=== PATIENT | male | born 1965 | race Hispanic/Latino ===

== ENCOUNTER 2020-06-14 08:25 | Outpatient (CLI) | payer BC, SELFPAY ==
[2020-06-14 09:11] LABS: Alanine Aminotransferase 30 U/L (4-50); Alkaline Phosphatase 75 U/L (38-126); Anion Gap 9 mmol/L (8-16); Aspartate Amino Transferase 33 U/L (17-59); Blood Urea Nitrogen 24 mg/dL (9-20); Calcium 8.7 mg/dL (8.4-10.2); Carbon Dioxide 23 mmol/L (22-30); Chloride 105 mmol/L (98-107); Cholesterol 115 mg/dL (0-200); Estimated Glomerular Filt Rate 45; Glucose 222 mg/dL (75-110); HDL Direct 27 mg/dL; Sodium 137 mmol/L (137-145); Triglycerides 349 mg/dL (<150)
[2020-06-14 09:13] LABS: Hemoglobin A1C 7.7 % (<5.7)
[2020-06-14 09:22] LABS: LDL Cholesterol Direct 33 mg/dL
[2020-06-14 09:41] LABS: Prostate Specific Antigen 1.1 ng/mL (< OR = 4.0)
== END 2020-06-14 08:26 | disposition home or self-care (01) ==
PROVIDERS: PCP Internal Medicine; Visit Provider Nurse Practitioner
DX: E78.5 Hyperlipidemia, unspecified (principal); E11.29 Type 2 diabetes mellitus with other diabetic kidney complication; Z12.5 Encounter for screening for malignant neoplasm of prostate
CPT/HCPCS: 36415; 80053; 80061; 83036; 84153; G0103

== ENCOUNTER 2020-10-15 09:11 | Emergency (ER) | payer BC, SELFPAY ==
--- NOTE | ~2020-10-15 | XR_ITS ---
EXAMINATION: XR scapula RT DATE: 10/15/2020 09:39 INDICATION: Right shoulder pain. TECHNIQUE: 2 views of right scapula were obtained. COMPARISON: None. FINDINGS: Bone alignment is normal. No fracture. There is moderate osteoarthritis of glenohumeral unique nt and acromioclavicular joint. IMPRESSION: 1. Polyarticular osteoarthritis. Reviewed, dictated and finalized at location A.
--- NOTE | ~2020-10-15 | XR_ITS ---
EXAMINATION: XR shoulder RT min 2V DATE: 10/15/2020 09:39 INDICATION: Right shoulder pain. TECHNIQUE: 4 views of right shoulder were obtained. COMPARISON: None. FINDINGS: Bone alignment is normal. No fracture. There is moderate osteoarthritis of glenohumeral unique nt and acromioclavicular joint. Partially visualized are pacer wires. IMPRESSION: 1. Polyarticular osteoarthritis. Reviewed, dictated and finalized at location A.
[2020-10-15 09:21] VITALS: BP 145/89; PULSE 80; RESP 17; TEMP 35.8; O2SAT 97
--- NOTE | 2020-10-15 09:36 | ED.GENADULT ---
HPI - General Adult General Chief complaint: Extremity Injury, Upper <Mellisa Faustin PA-C - Last Filed: 10/15/20 09:55> Stated complaint: right shoulder blade pain <Mellisa Faustin PA-C - Last Filed: 10/15/20 09:55> Time Seen by Provider: 10/15/20 09:19 <Mellisa Faustin PA-C - Last Filed: 10/15/20 09:55> Source: patient <DAMON Hunt Last Filed: 10/15/20 09:55> Mode of arrival: ambulatory <Mellisa Faustin PA-C - Last Filed: 10/15/20 09:55> Limitations: no limitations <DAMON Hunt Last Filed: 10/15/20 09:55> History of Present Illness HPI narrative: Patient presents with chief complaint of right scapular and shoulder pain that began approximately 2 weeks ago. Patient states he cannot recall a direct injury however he carries a 30+ pound weight back on the shoulder daily. He reports pain with range of motion. Patient states last night he had trouble sleeping and normally takes 1 [place] for his knee pain but had to take 2 in order to be able to sleep due to the pain from the shoulder. Patient denies any loss of sensation or strength, but does report pain with some range of motion. Patient denies having prior injury or fracture to the shoulder. Patient has not seen his primary care regarding the shoulder. He denies any other complaints or concerns. <Mellisa Faustin PA-C - Last Filed: 10/15/20 09:55> Related Data Home medications: Home Medications Medication Instructions Recorded Confirmed aspirin 81 mg tablet,delayed 81 mg PO DAILY 05/29/19 06/24/20 release sildenafil 50 mg tablet 50 mg PO DAILY PRN 05/29/19 06/24/20 triamcinolone acetonide 0.1 % 1 applic TOPICAL .BID PRN gm 06/13/19 06/24/20 topical cream <DAMON Hunt Last Filed: 10/15/20 09:55> Allergies/adverse reactions: Allergies Allergy/AdvReac Type Severity Reaction Status Date / Time No Known Allergies Allergy Verified 01/03/20 06:59 <Mellisa Faustin PA-C - Last Filed: 10/15/20 09:55> Review of Systems Review of Systems: Narrative: CONSTITUTIONAL: Denies fever, chills, or sweats. EYES: Denies visual changes, redness, or discharge. ENT: Denies rhinorrhea, congestion, sore throat, or otalgia. CARDIOVASCULAR: Denies chest pain, palpitations, or edema. RESPIRATORY: Denies cough or dyspnea. GASTROINTESTINAL: Denies abdominal pain, nausea, vomiting, or diarrhea. GENITOURINARY: Denies dysuria or hematuria. SKIN: Denies rash or itching. MUSCULOSKELETAL: Reports right shoulder and scapular pain denies back pain or myalgia. NEUROLOGIC: Denies headache, numbness, dizziness, or weakness. PSYCHIATRIC: Denies anxiety or depression. <Mellisa Faustin PA-C - Last Filed: 10/15/20 09:55> [facility] Past Medical History Medical History: Medical History (Updated 10/15/20 @ 09:55 by Mellisa Faustin PA-C) Chronic pain History of Fljdp-Hyumrbnfy-Kqkrb (WPW) syndrome <Mellisa Faustin PA-C - Last Filed: 10/15/20 09:55> Surgical History Surgical History: Surgical History History of implantable cardioverter-defibrillator (ICD) placement <Mellisa Faustin PA-C - Last Filed: 10/15/20 09:55> Family History Family History: Family History Mother Family history of malignant neoplasm of ovary Patient's mother is Father Family history of heart disease in male family member before age 55 Patient's father is Other Family history of alcoholism <Mellisa Faustin PA-C - Last Filed: 10/15/20 09:55> Social History Social History: Social History Smoking status: Former smoker Smoking end date: 08/02/13 Alcohol intake: current Gender identity (if verbalized by the patient): Male <Mellisa Faustin PA-C - Last Filed: 10/15/20 09:55> Exam Narrative: Exam Narrative:
== END 2020-10-15 10:05 | disposition home or self-care (01) ==
PROVIDERS: Emergency Provider General Practice; PCP Internal Medicine
DX: M19.011 Primary osteoarthritis, right shoulder (principal); Z95.810 Presence of automatic (implantable) cardiac defibrillator; Z87.74 Personal history of (corrected) congenital malformations of heart and circulatory system; Z87.891 Personal history of nicotine dependence
CPT/HCPCS: 73010; 73030; 99283

== ENCOUNTER → 2020-10-24 10:06 | Outpatient (CLI) | payer BC, SELFPAY ==
--- NOTE | ~2020-10-24 | US_ITS ---
US soft tissue upper back DATE: 10/24/2020 10:40 INDICATION: Lump at scapular region TECHNIQUE: Real-time and color flow imaging of the soft tissues of the right back COMPARISON: None FINDINGS: There is possible 4 x 5 cm soft tissue mass adjacent to the scapula. No vascularity is evid ent on color flow imaging. Detail is limited. CT or MR correlation is recommended. IMPRESSION: Possible soft tissue mass adjacent to scapula, limited examination; CT or MR correlation is recommended Reviewed, dictated and finalized at Location A. Reviewed, dictated and finalized at location B.
== END ==
PROVIDERS: PCP Internal Medicine; Visit Provider Nurse Practitioner
DX: R22.30 Localized swelling, mass and lump, unspecified upper limb (principal)
CPT/HCPCS: 76604

== ENCOUNTER 2020-11-05 07:56 | Outpatient (CLI) | payer BC, SELFPAY ==
--- NOTE | ~2020-11-05 | CT_ITS ---
EXAMINATION: CT shoulder RT wo con DATE: 11/05/2020 08:24 INDICATION: Right shoulder mass. TECHNIQUE: Computed tomography (CT) of the right shoulder was performed without intravenous contrast. Automated exposure control and iterative reconstruction technique were employed. The dose-length pro duct was 792.37 mGy-cm. COMPARISON: Ultrasound 10/24/2020 FINDINGS: Bone alignment is normal. No fracture. There is moderate osteoarthritis of acromioclavicula r joint and mild osteoarthrosis of glenohumeral joint. There are pacer wires in right atrium, right v entricle, and coronary sinus. IMPRESSION: 1. No abnormal soft tissue mass identified. Reviewed, dictated and finalized at location A.
== END 2020-11-05 07:57 | disposition home or self-care (01) ==
PROVIDERS: PCP Internal Medicine; Visit Provider Nurse Practitioner
DX: R22.31 Localized swelling, mass and lump, right upper limb (principal)
CPT/HCPCS: 73200

== ENCOUNTER 2021-04-26 08:07 | Outpatient (CLI) | payer BC, SELFPAY ==
[2021-04-26 08:41] LABS: Alanine Aminotransferase 25 U/L (4-50); Albumin Level 3.8 g/dL (3.5-5.1); Alkaline Phosphatase 76 U/L (38-126); Anion Gap 8 mmol/L (8-16); Aspartate Amino Transferase 28 U/L (17-59); Bilirubin,Total 0.6 mg/dL (0.2-1.3); Blood Urea Nitrogen 16 mg/dL (9-20); Calcium 8.8 mg/dL (8.4-10.2); Carbon Dioxide 24 mmol/L (22-30); Chloride 107 mmol/L (98-107); Cholesterol 118 mg/dL (0-200); Estimated Glomerular Filt Rate 48; Glucose 187 mg/dL (65-110); HDL Direct 33 mg/dL; Potassium 4.3 mmol/L (3.4-5.0); Sodium 139 mmol/L (137-145); Triglycerides 235 mg/dL (<150)
[2021-04-26 08:52] LABS: LDL Cholesterol Direct 49 mg/dL
[2021-04-26 09:02] LABS: Hemoglobin A1C 7.7 % (<5.7)
== END 2021-04-26 08:08 | disposition home or self-care (01) ==
PROVIDERS: PCP Internal Medicine; Visit Provider Internal Medicine
DX: E11.29 Type 2 diabetes mellitus with other diabetic kidney complication (principal); I12.9 Hypertensive chronic kidney disease with stage 1 through stage 4 chronic kidney disease, or unspecified chronic kidney disease; N18.30 Chronic kidney disease, stage 3 unspecified; E78.5 Hyperlipidemia, unspecified
CPT/HCPCS: 36415; 80053; 80061; 83036

== ENCOUNTER 2022-05-23 08:57 | Outpatient (CLI) | payer OTHER, SELFPAY ==
[2022-05-23 09:36] LABS: Alanine Aminotransferase 27 U/L (6-50); Albumin Level 3.9 g/dL (3.5-5.1); Alkaline Phosphatase 65 U/L (38-126); Anion Gap 14 mmol/L (8-16); Aspartate Amino Transferase 28 U/L (17-59); Bilirubin,Total 0.7 mg/dL (0.2-1.3); Blood Urea Nitrogen 18 mg/dL (9-20); Calcium 8.5 mg/dL (8.4-10.2); Carbon Dioxide 23 mmol/L (22-30); Chloride 102 mmol/L (98-107); Cholesterol 121 mg/dL (0-200); Estimated Glomerular Filt Rate 45; Glucose 171 mg/dL (65-110); HDL Direct 31 mg/dL; Potassium 4.6 mmol/L (3.4-5.0); Sodium 139 mmol/L (137-145); Triglycerides 290 mg/dL (<150)
[2022-05-23 09:47] LABS: LDL Cholesterol Direct 51 mg/dL
[2022-05-23 09:53] LABS: Hemoglobin A1C 7.5 % (<5.7)
== END 2022-05-23 08:58 | disposition home or self-care (01) ==
LOC: ANHLAB 08:58
PROVIDERS: PCP Internal Medicine; Visit Provider Internal Medicine
DX: E78.5 Hyperlipidemia, unspecified (principal); E11.29 Type 2 diabetes mellitus with other diabetic kidney complication; I10 Essential (primary) hypertension
CPT/HCPCS: 36415; 80053; 80061; 83036

== ENCOUNTER 2022-09-14 15:55 | Outpatient (CLI) | payer OTHER, SELFPAY ==
[2022-09-14 16:41] LABS: Alanine Aminotransferase 24 U/L (6-50); Albumin Level 3.9 g/dL (3.5-5.1); Alkaline Phosphatase 73 U/L (38-126); Anion Gap 5 mmol/L (8-16); Aspartate Amino Transferase 24 U/L (17-59); Bilirubin,Total 0.9 mg/dL (0.2-1.3); Blood Urea Nitrogen 20 mg/dL (9-20); Calcium 8.1 mg/dL (8.4-10.2); Carbon Dioxide 26 mmol/L (22-30); Chloride 106 mmol/L (98-107); Cholesterol 125 mg/dL (0-200); Estimated Glomerular Filt Rate 37; Glucose 100 mg/dL (65-110); HDL Direct 30 mg/dL; Potassium 4.4 mmol/L (3.4-5.0); Sodium 137 mmol/L (137-145); Triglycerides 357 mg/dL (<150)
[2022-09-14 16:51] LABS: LDL Cholesterol Direct 43 mg/dL
[2022-09-14 17:10] LABS: Prostate Specific Antigen 0.9 ng/mL (< OR = 4.0)
[2022-09-14 18:46] LABS: Hemoglobin A1C 7.6 % (<5.7)
== END 2022-09-14 15:56 | disposition home or self-care (01) ==
LOC: ANHLAB 15:56
PROVIDERS: PCP Internal Medicine; Visit Provider Internal Medicine
DX: E11.29 Type 2 diabetes mellitus with other diabetic kidney complication (principal); I10 Essential (primary) hypertension; E78.5 Hyperlipidemia, unspecified; Z12.5 Encounter for screening for malignant neoplasm of prostate
CPT/HCPCS: 36415; 80053; 80061; 83036; 84153; G0103

== ENCOUNTER 2023-04-01 16:19 | Outpatient (CLI) | payer OTHER, SELFPAY ==
[2023-04-01 17:14] LABS: Alanine Aminotransferase 26 U/L (6-50); Albumin Level 3.7 g/dL (3.5-5.1); Alkaline Phosphatase 110 U/L (38-126); Anion Gap 10 mmol/L (8-16); Aspartate Amino Transferase 28 U/L (17-59); Bilirubin,Total 0.7 mg/dL (0.2-1.3); Blood Urea Nitrogen 20 mg/dL (9-20); Calcium 8.3 mg/dL (8.4-10.2); Carbon Dioxide 23 mmol/L (22-30); Chloride 99 mmol/L (98-107); Estimated Glomerular Filt Rate 39; Glucose 369 mg/dL (65-110); Phosphorus 4.1 mg/dL (2.5-4.5); Potassium 4.2 mmol/L (3.4-5.0); Sodium 132 mmol/L (137-145)
[2023-04-01 20:26] LABS: Hemoglobin A1C 10.4 % (<5.7)
[2023-04-01 20:36] LABS: Microalbumin Urine Random > 1140.0 mg/L (0-16.7)
[2023-04-16 17:33] LABS: Parathyroid Hormone Related Pr 5 pg/mL (11-20)
== END 2023-04-01 16:20 | disposition home or self-care (01) ==
LOC: ANHLAB 16:20
PROVIDERS: PCP Nurse Practitioner Family; Visit Provider Nurse Practitioner Family
DX: I12.9 Hypertensive chronic kidney disease with stage 1 through stage 4 chronic kidney disease, or unspecified chronic kidney disease (principal); N18.30 Chronic kidney disease, stage 3 unspecified; E11.22 Type 2 diabetes mellitus with diabetic chronic kidney disease
CPT/HCPCS: 36415; 80053; 82043; 83036; 83519; 84100

== ENCOUNTER 2023-08-09 12:20 | Outpatient (CLI) | payer OTHER, SELFPAY ==
[2023-08-09 12:33] LABS: Basophils Absolute Auto 0.1 K/mm3 (0.0-0.1); Basophils Percent Auto 0.6 % (0.2-1.2); Eosinophils Absolute Auto 0.1 K/mm3 (0-0.3); Eosinophils Percent Auto 1.5 % (0-4.4); Hematocrit 45.5 % (42.0-52.0); Hemoglobin 15.3 g/dL (14.0-18.0); Immature Granulocyte Absolute 0.02 K/mm3 (0.00-0.031); Immature Granulocyte Percent A 0.2 % (0-0.5); Lymphocytes Absolute Auto 2.16 K/mm3 (0.9-3.2); Lymphocytes Percent Auto 25.7 % (18.3-44.2); Mean Corpuscular HGB Conc 33.6 g/dl (32-36); Mean Corpuscular Volume 95.2 fl (80-100); Mean Platelet Volume 10.3 fl (7.4-10.4); Monocytes Absolute Auto 0.7 K/mm3 (0.1-0.6); Monocytes Percent Auto 7.8 % (2.6-8.5); Neutrophils Absolute Auto 5.4 K/mm3 (1.3-6.7); Neutrophils Percent Auto 64.2 % (45.5-73.1); Platelet Count Result 179 k/mm3 (150-375); Red Blood Count 4.78 M/mm3 (4.6-6.20); White Blood Count 8.4 K/mm3 (4.5-10.0)
[2023-08-09 12:43] LABS: Alanine Aminotransferase 24 U/L (6-50); Albumin Level 3.7 g/dL (3.5-5.1); Alkaline Phosphatase 73 U/L (38-126); Anion Gap 8 mmol/L (8-16); Aspartate Amino Transferase 29 U/L (17-59); Bilirubin,Total 1.1 mg/dL (0.2-1.3); Blood Urea Nitrogen 17 mg/dL (9-20); Calcium 8.6 mg/dL (8.4-10.2); Carbon Dioxide 26 mmol/L (22-30); Chloride 103 mmol/L (98-107); Cholesterol 156 mg/dL (0-200); Estimated Glomerular Filt Rate 37; Glucose 144 mg/dL (65-110); HDL Direct 33 mg/dL; Sodium 137 mmol/L (137-145); Triglycerides 224 mg/dL (<150)
[2023-08-09 12:54] LABS: LDL Cholesterol Direct 81 mg/dL
[2023-08-09 12:59] LABS: Hemoglobin A1C 6.9 % (<5.7)
== END 2023-08-09 12:21 | disposition home or self-care (01) ==
LOC: ANHLAB 12:22
PROVIDERS: PCP Nurse Practitioner Family; Visit Provider Nurse Practitioner Family
DX: E11.22 Type 2 diabetes mellitus with diabetic chronic kidney disease (principal); I42.0 Dilated cardiomyopathy; I50.22 Chronic systolic (congestive) heart failure; E78.5 Hyperlipidemia, unspecified; R53.83 Other fatigue; I12.9 Hypertensive chronic kidney disease with stage 1 through stage 4 chronic kidney disease, or unspecified chronic kidney disease; N18.30 Chronic kidney disease, stage 3 unspecified
CPT/HCPCS: 36415; 80053; 80061; 83036; 84443; 85025

== ENCOUNTER 2023-12-12 16:21 | Emergency (ER) | payer OTHER, SELFPAY ==
--- NOTE | ~2023-12-12 | CT_ITS ---
EXAMINATION: CT brain wo con DATE: 12/12/2023 17:59 INDICATION: Head injury. TECHNIQUE: Computed tomography (CT) of the head was performed without intravenous contrast. The mA wa s adjusted according to patient size. Iterative reconstruction technique was employed. The dose-lengt h product was 605.33 mGy-cm. COMPARISON: None FINDINGS: There is no intracranial hemorrhage, acute infarction, or abnormal intracranial mass lesion . The ventricles are normal in size. There is mild mucosal thickening in the paranasal sinuses. The m astoid air cells are normal. IMPRESSION: 1. Normal brain. Reviewed, dictated and finalized at location E. IMPRESSION: 1. Normal brain.
--- NOTE | ~2023-12-12 | CT_ITS ---
EXAMINATION: CT facial & cervical spine wo DATE: 12/12/2023 17:59 INDICATION: Head injury. TECHNIQUE: Computed tomography (CT) of the maxillofacial region and cervical spine was performed with out intravenous contrast. Automated exposure control and iterative reconstruction technique were empl oyed. The dose-length product was 588.12 mGy-cm. COMPARISON: None FINDINGS: MAXILLOFACIAL CT: The orbits are normal. There is rightward deviation of the nasal septum. No fracture. There is mild m ucosal thickening in the paranasal sinuses. The mastoid air cells are normal. There is multifocal den darlyn disease. There is mild right submandibular lymphadenopathy, likely reactive. CERVICAL SPINE CT: There is kyphosis of cervical spine. There is 6 degrees dextrocurvature of cervical spine. Vertebral body heights are normal. There is moderately decreased disc height at C3-C4 and mildly decreased disc height from C4-C5 through C6-C7. Osseous central spinal canal is developmentally small. The followin g disc levels are specifically discussed: C2-C3: There is mild bilateral uncovertebral joint osteoarthritis. There is mild bilateral facet join t osteoarthritis. There is mild right neural foraminal stenosis. There is no central canal stenosis. C3-C4: There is severe bilateral uncovertebral joint osteoarthritis. There is mild bilateral facet ziggy int osteoarthritis. There is moderate bilateral neural foraminal stenosis. There is moderate central canal stenosis. C4-C5: There is mild bilateral uncovertebral joint osteoarthritis. There is no facet joint osteoarthr itis. There is no neural foraminal stenosis. There is mild central canal stenosis. C5-C6: There is moderate right and mild left uncovertebral joint osteoarthritis. There is mild bilate ral facet joint osteoarthritis. There is mild right neural foraminal stenosis. There is mild central canal stenosis. C6-C7: There is mild bilateral uncovertebral joint osteoarthritis. There is mild bilateral facet join t osteoarthritis. There is no neural foraminal stenosis. There is mild central canal stenosis. C7-T1: There is no uncovertebral joint osteoarthritis. There is moderate bilateral facet joint osteoa rthritis. There is no neural foraminal stenosis. There is no central canal stenosis. IMPRESSION: 1. No fracture. 2. Moderate cervical spondylosis. 3. Dental disease. 4. Mild right submandibular lymphadenopathy, likely reactive. Reviewed, dictated and finalized at location E.
[2023-12-12 16:22] VITALS: BP 140/89; PULSE 86; RESP 18; TEMP 36.9; O2SAT 98
--- NOTE | 2023-12-12 16:47 | ED.GENADULT ---
HPI - General Adult General Chief complaint: Wound/Laceration Stated complaint: nose wound Time Seen by Provider: 12/12/23 16:42 Source: patient Mode of arrival: ambulatory Limitations: no limitations History of Present Illness HPI narrative: This is a 58-year-old male who presents to the ED with chief complaint of facial injury that occurred just prior to arrival. Patient reports that he was working on his lawnmower today when he accidentally hit his nose on the dashboard. Reports this caused him to fall backwards onto the ground. He now has subsequent soreness throughout his body. Reports it is worse in the upper back and neck. Denies LOC. Denies abdominal pain, nausea, vomiting, numbness, weakness, chest pain or shortness of breath Related Data Allergies Allergy/AdvReac Type Severity Reaction Status Date / Time No Known Allergies Allergy Verified 08/10/23 14:14 Review of Systems Review of Systems: All systems as dictated in HPI [facility] Past Medical History Medical History Anxiety CHF (congestive heart failure) Chronic kidney disease, stage 3 (moderate) Chronic pain Chronic systolic (congestive) heart failure Depression Dyslipidemia Erectile dysfunction Essential hypertension Heart disease History of Yxxpz-Gdcdbeaik-Evram (WPW) syndrome Hx of cardiac pacemaker LBBB (left bundle branch block) Lumbar degenerative disc disease Osteoarthritis Primary osteoarthritis of both knees Type 2 diabetes mellitus with other diabetic kidney complication Surgical History Surgical History (Updated 04/20/23 @ 09:01 by Matt Nunez*MD) History of implantable cardioverter-defibrillator (ICD) placement Hx of arthroscopy of right knee 2014 Family History Family History Mother Family history of malignant neoplasm of ovary Patient's mother is Father Family history of heart disease in male family member before age 55 Patient's father is Other Family history of alcoholism Social History Social History Smoking packs per day: 0.5 Smoking cigarettes per day: 10.0 Years smoked: 10 Smoking pack-years: 5.00 Smoking status: Former smoker Second hand tobacco smoke exposure: Yes Smoking end date: 08/02/13 Alcohol intake: current Alcohol use details: Social Substance use: current Substance use type: marijuana Lack of Transportation: No Lack of Food: Never True Current Housing: I Have Housing Concerned About Future Housing: No Difficulty Paying Gas/Electric Bills: No Difficulty Paying for Meds: No Currently Unemployed: No Education: Trade/Vocational Certificate Difficulty w/ Childcare or Family Care: No Living arrangements: with family Occupation/Education: occupation Gender identity (if verbalized by the patient): Male Exam Narrative: GENERAL: Well-appearing, well-nourished, and in no acute distress. HEAD: Normocephalic, atraumatic. EYES: PERRLA and EOMI. ENT: Nares clear, no rhinorrhea or epistaxis. Mucous membranes moist. Oropharynx without tonsillar hypertrophy exudate or other lesions. NECK: Supple. No adenopathy or masses. CHEST: No respiratory distress. Clear to auscultation. No wheezes rales or rhonchi. No chest wall tenderness. HEART: Regular rate and rhythm. No murmur heard. Normal peripheral pulses. ABDOMEN: Soft, nontender, nondistended, normal active bowel sounds. MSK: Mild tenderness to the midline cervical spine. No other midline spinal tenderness. No tenderness throughout the rest of the MSK exam. SKIN: Flap laceration to the anterior nose distally. It is well-approximated. Minimal depth. Bleeding controlled. NEURO: Alert and oriented x3. No focal deficits. PSYCH: Normal mood and affect. Course Vital Signs Vital signs: Vital Sig
--- NOTE | 2023-12-12 18:04 | PC.NURSE ---
Report received from PASTORA Davila. Assumed care of patient at this time.
== END 2023-12-12 18:47 | disposition home or self-care (01) ==
PROVIDERS: Emergency Provider Physician Assistant; PCP Nurse Practitioner Family
DX: S01.21XA Laceration without foreign body of nose, initial encounter (principal); I13.0 Hypertensive heart and chronic kidney disease with heart failure and stage 1 through stage 4 chronic kidney disease, or unspecified chronic kidney disease; I50.22 Chronic systolic (congestive) heart failure; E11.22 Type 2 diabetes mellitus with diabetic chronic kidney disease; N18.30 Chronic kidney disease, stage 3 unspecified; E78.5 Hyperlipidemia, unspecified; I45.6 Pre-excitation syndrome; M17.0 Bilateral primary osteoarthritis of knee; Z95.810 Presence of automatic (implantable) cardiac defibrillator; Z87.891 Personal history of nicotine dependence; W22.8XXA Striking against or struck by other objects, initial encounter
CPT/HCPCS: 12011; 70450; 70486; 72125; 99284

== ENCOUNTER 2024-02-22 08:52 | Outpatient (CLI) | payer OTHER, SELFPAY ==
[2024-02-22 09:29] LABS: Alanine Aminotransferase 23 U/L (6-50); Albumin Level 3.6 g/dL (3.5-5.1); Alkaline Phosphatase 96 U/L (38-126); Anion Gap 7 mmol/L (4-12); Aspartate Amino Transferase 24 U/L (17-59); Bilirubin,Total 0.8 mg/dL (0.2-1.3); Blood Urea Nitrogen 18 mg/dL (9-20); Calcium 8.3 mg/dL (8.4-10.2); Carbon Dioxide 26 mmol/L (22-30); Chloride 99 mmol/L (98-107); Estimated Glomerular Filt Rate 39; Glucose 386 mg/dL (65-110); Potassium 4.3 mmol/L (3.4-5.0); Sodium 132 mmol/L (137-145)
[2024-02-22 09:43] LABS: Creatinine Urine 47.6 mg/dL
[2024-02-22 10:48] LABS: Hemoglobin A1C 9.8 % (<5.7)
[2024-02-22 11:10] LABS: Microalbumin Urine Random > 1140.0 mg/L (0-16.7)
[2024-02-22 11:11] LABS: MALB Creatinine Ratio > 2395.0 mg/g (0-30)
== END 2024-02-22 08:53 | disposition home or self-care (01) ==
LOC: ANHLAB 08:53
PROVIDERS: PCP Nurse Practitioner Family; Visit Provider Nurse Practitioner Family
DX: D69.6 Thrombocytopenia, unspecified (principal); E11.22 Type 2 diabetes mellitus with diabetic chronic kidney disease; E11.29 Type 2 diabetes mellitus with other diabetic kidney complication; I50.22 Chronic systolic (congestive) heart failure; M51.36 Other intervertebral disc degeneration, lumbar region; Z12.5 Encounter for screening for malignant neoplasm of prostate; I12.9 Hypertensive chronic kidney disease with stage 1 through stage 4 chronic kidney disease, or unspecified chronic kidney disease; N18.30 Chronic kidney disease, stage 3 unspecified
CPT/HCPCS: 36415; 80053; 82043; 83036; 84153; G0103

== ENCOUNTER 2024-05-08 01:54 | Day surgery (SDC) | payer OTHER, SELFPAY ==
[2024-04-17 09:21] VITALS: BMI 35.7
[2024-05-08 08:48] VITALS: BP 152/97; PULSE 91; RESP 20; TEMP 35.8; O2SAT 96; BMI 34.7
[2024-05-08] MEDS: LACTATED RINGERS 1,000 ML 150 ML IV CONT (09:01)
[2024-05-08 09:02] LABS: Glucose Point of Care 134 mg/dl (65-105)
--- NOTE | 2024-05-08 09:04 | WPDANESEPPF ---
Anes - Initial Pre Proc Eval Procedure: Operation Date: 05/08/24 10:00 Proposed Procedures p Screening Colonoscopy - Yoni Sam MD Date/Time: 05/08/24 09:04 Surgeon: Yoni Sam MD Pre Op Diagnosis: Encounter for screening for malignant neoplasm of Patient Data Age: 59 Gender: M Height: 1.78 m Weight: 110 kg Last Vital Signs Temp 35.8 C L 05/08/24 08:48 Pulse 91 05/08/24 08:48 Resp 20 05/08/24 08:48 BP 152/97 H 05/08/24 08:48 Pulse Ox 96 05/08/24 08:48 O2 Del Method Room Air 05/08/24 08:48 Allergies Allergy/AdvReac Type Severity Reaction Status Date / Time No Known Allergies Allergy Verified 05/08/24 08:46 Home Medications Medication Instructions Recorded Confirmed Type sildenafil 100 mg tablet 100 mg PO DAILY PRN sexual 11/17/21 04/17/24 Rx activity #20 tabs pen needle, diabetic 32 gauge x #100 ea 11/15/23 02/16/24 Rx 1/4 (Comfort EZ Pen [place]) indomethacin 50 mg capsule 100 mg PO QHS PRN pain #30 caps 01/04/24 04/17/24 Rx amlodipine 10 mg tablet (Norvasc) 10 mg PO DAILY #90 tabs 02/16/24 04/17/24 Rx atorvastatin 10 mg tablet 10 mg PO DAILY #90 tabs 02/16/24 04/17/24 Rx carvedilol 25 mg tablet See Rx Instructions .Route 02/16/24 04/17/24 Rx .COMPLEX #270 tabs paroxetine HCl 30 mg tablet (Paxil) 30 mg PO DAILY #90 tabs 02/16/24 04/17/24 Rx valsartan 160 mg tablet 160 mg PO DAILY #90 tabs 02/16/24 04/17/24 Rx trazodone 100 mg tablet See Rx Instructions .Route 03/28/24 04/17/24 Rx .COMPLEX #90 tabs tirzepatide 7.5 mg/0.5 mL 7.5 mg (0.5 mL) subcut WEEKLY #6 mL 04/24/24 Rx subcutaneous pen injector hydrocodone 10 mg-acetaminophen 1 tablet PO BID PRN pain #60 tabs 04/29/24 Rx 325 mg tablet lorazepam 0.5 mg tablet 0.5 mg PO DAILY PRN anxiety #30 04/29/24 Rx tabs Laboratory Tests 05/08/24 08:59 POC Capillary Glucose 134 H mg/dl (65-105) Patient hx anesthesia problems: none Family hx anesthesia problems: none Results Review: All pre-operative results and documents have been reviewed as part of the pre-operative evaluation. 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 Surgical History Surgical History History of implantable cardioverter-defibrillator (ICD) placement Hx of arthroscopy of right knee 2014 Family History Family History Mother Family history of malignant neoplasm of ovary Patient's mother is Father Family history of heart disease in male family member before age 55 Patient's father is Other Family history of alcoholism Social History Social History Smoking packs per day: 0.5 Smoking cigarettes per day: 10.0 Years smoked: 10 Smoking pack-years: 5.00 Smoking status: Never smoker Second hand tobacco smoke exposure: Yes Smoking end date: 08/02/13 Alcohol intake: never Alcohol use details: Social Substance use: current Substance use type: marijuana Other substance usage details: OCCASIONALLY Lack of Transportation: No Lack of Food: Never True Current Housing: I Have Housing Concerned About Future Housing: No Difficulty Paying Gas/Electric Bills: No Difficulty Paying for Meds: No Currently Unemployed: No Education: Trade/V
--- NOTE | 2024-05-08 09:35 | PM.HPGS ---
History of Present Illness History of Present Illness Consent: Risks, benefits, and alternatives have been discussed and questions answered. Patient agrees to proceed with procedure. Chief complaint: Encounter for screening for malignant neoplasm of Narrative: Zaki Staley is a 59 year old male here for first screening colonoscopy Review of Systems Review of Systems: All systems reviewed & are unremarkable except as noted in HPI and below PMFSH Past Medical History Medical History (Updated 05/08/24 @ 09:36 by Yoni Sam MD) Anxiety CHF (congestive heart failure) Chronic kidney disease, stage 3 (moderate) Chronic pain Chronic systolic (congestive) heart failure Colon cancer screening Depression Dyslipidemia Erectile dysfunction Essential hypertension Heart disease History of Sewkv-Kkltupazy-Lnqou (WPW) syndrome Hx of cardiac pacemaker LBBB (left bundle branch block) Lumbar degenerative disc disease Osteoarthritis Primary osteoarthritis of both knees Type 2 diabetes mellitus with other diabetic kidney complication Surgical History Surgical History History of implantable cardioverter-defibrillator (ICD) placement Hx of arthroscopy of right knee 2014 Family History Family History Mother Family history of malignant neoplasm of ovary Patient's mother is Father Family history of heart disease in male family member before age 55 Patient's father is Other Family history of alcoholism Social History Social History Smoking packs per day: 0.5 Smoking cigarettes per day: 10.0 Years smoked: 10 Smoking pack-years: 5.00 Smoking status: Never smoker Second hand tobacco smoke exposure: Yes Smoking end date: 08/02/13 Alcohol intake: never Alcohol use details: Social Substance use: current Substance use type: marijuana Other substance usage details: OCCASIONALLY Lack of Transportation: No Lack of Food: Never True Current Housing: I Have Housing Concerned About Future Housing: No Difficulty Paying Gas/Electric Bills: No Difficulty Paying for Meds: No Currently Unemployed: No Education: Trade/Vocational Certificate Difficulty w/ Childcare or Family Care: No Living arrangements: with family Occupation/Education: occupation Gender identity (if verbalized by the patient): Male Spiritual care concerns: No Meds Home Medications and Allergies Home Medications Medication Instructions Recorded Confirmed Type sildenafil 100 mg tablet 100 mg PO DAILY PRN sexual 11/17/21 04/17/24 Rx activity #20 tabs pen needle, diabetic 32 gauge x #100 ea 11/15/23 02/16/24 Rx 1/4 (Comfort EZ Pen [place]) indomethacin 50 mg capsule 100 mg PO QHS PRN pain #30 caps 01/04/24 04/17/24 Rx amlodipine 10 mg tablet (Norvasc) 10 mg PO DAILY #90 tabs 02/16/24 04/17/24 Rx atorvastatin 10 mg tablet 10 mg PO DAILY #90 tabs 02/16/24 04/17/24 Rx carvedilol 25 mg tablet See Rx Instructions .Route 02/16/24 04/17/24 Rx .COMPLEX #270 tabs paroxetine HCl 30 mg tablet (Paxil) 30 mg PO DAILY #90 tabs 02/16/24 04/17/24 Rx valsartan 160 mg tablet 160 mg PO DAILY #90 tabs 02/16/24 04/17/24 Rx trazodone 100 mg tablet See Rx Instructions .Route 03/28/24 04/17/24 Rx .COMPLEX #90 tabs tirzepatide 7.5 mg/0.5 mL 7.5 mg (0.5 mL) subcut WEEKLY #6 mL 04/24/24 Rx subcutaneous pen injector hydrocodone 10 mg-acetaminophen 1 tablet PO BID PRN pain #60 tabs 04/29/24 Rx 325 mg tablet lorazepam 0.5 mg tablet 0.5 mg PO DAILY PRN anxiety #30 04/29/24 Rx tabs Allergies Allergy/AdvReac Type Severity Reaction Status Date / Time No Known Allergies Allergy Verified 05/08/24 08:46 Vital Signs Vital Signs - 24 hr 05/08/24 08:48 Temperature 96.5 F L Pulse Rate 91 Respiratory Rate
--- NOTE | 2024-05-08 09:54 | SUR.OPER ---
Magnet applied by anesthesia per CRMD guidelines.
[2024-05-08 10:21] VITALS: BP 138/99; PULSE 102; RESP 28; O2SAT 96
[2024-05-08 10:31] VITALS: BP 124/84; PULSE 95; RESP 22; O2SAT 100
[2024-05-08 10:41] VITALS: BP 136/97; PULSE 88; RESP 22; O2SAT 98
[2024-05-08 10:45] LABS: Glucose Point of Care 106 mg/dl (65-105)
--- NOTE | 2024-05-08 10:49 | SUR.PHASEII ---
PER CRMD FORM IN PT'S CHART, NOTE STATES 04/19 SPOKE WITH CRISTOFER (LOCAL REP) USE MAGNET IF CAUTERY USED--WILL AUTO BACK TO PROGRAM ONCE MAGNET REMOVED. DOES NOT HAVE TO BE INTEROGATED AFTER MAGNET USE. WHITNEY GUILLORY PT DISCHARGED WITHOUT INTEROGATION PER NOTE FROM TREASURY MANAGER. PT DENIES ANY CONCERNS AND STATES UNDERSTANDING.
== END 2024-05-08 10:54 | disposition home or self-care (01) ==
PROVIDERS: PCP Nurse Practitioner Family; Visit Provider Internal Medicine Gastroenterology
PROC: 0DJD8ZZ Inspection of Lower Intestinal Tract, Via Natural or Artificial Opening Endoscopic (ICD-10-PCS; CPT 45378; principal; 2024-05-08 10:00)
DX: Z12.11 Encounter for screening for malignant neoplasm of colon (principal); D12.2 Benign neoplasm of ascending colon; D12.4 Benign neoplasm of descending colon; K64.8 Other hemorrhoids; K57.30 Diverticulosis of large intestine without perforation or abscess without bleeding; E11.29 Type 2 diabetes mellitus with other diabetic kidney complication; I13.0 Hypertensive heart and chronic kidney disease with heart failure and stage 1 through stage 4 chronic kidney disease, or unspecified chronic kidney disease; N18.30 Chronic kidney disease, stage 3 unspecified; I50.22 Chronic systolic (congestive) heart failure; F41.9 Anxiety disorder, unspecified; G89.29 Other chronic pain; F32.A Depression, unspecified; E78.5 Hyperlipidemia, unspecified; N52.9 Male erectile dysfunction, unspecified; I45.6 Pre-excitation syndrome; I44.7 Left bundle-branch block, unspecified; M17.0 Bilateral primary osteoarthritis of knee; F12.90 Cannabis use, unspecified, uncomplicated; E66.9 Obesity, unspecified; Z68.34 Body mass index [BMI] 34.0-34.9, adult; Z79.85 Long-term (current) use of injectable non-insulin antidiabetic drugs; Z79.891 Long term (current) use of opiate analgesic; Z98.890 Other specified postprocedural states; Z95.0 Presence of cardiac pacemaker; Z87.891 Personal history of nicotine dependence; Z80.41 Family history of malignant neoplasm of ovary; Z82.49 Family history of ischemic heart disease and other diseases of the circulatory system
CPT/HCPCS: 45385; 82948; 88305; J2003; J2704; J7120

== ENCOUNTER 2024-08-21 15:13 | Outpatient (CLI) | payer BC, SELFPAY ==
[2024-08-21 15:48] LABS: Basophils Percent Auto 0.4 % (0.2-1.2); Eosinophils Absolute Auto 0.2 K/mm3 (0-0.3); Eosinophils Percent Auto 2.4 % (0-4.4); Hematocrit 43.7 % (42.0-52.0); Hemoglobin 15.2 g/dL (14.0-18.0); Immature Granulocyte Absolute 0.02 K/mm3 (0.00-0.031); Immature Granulocyte Percent A 0.3 % (0-0.5); Lymphocytes Absolute Auto 1.92 K/mm3 (0.9-3.2); Lymphocytes Percent Auto 24.5 % (18.3-44.2); Mean Corpuscular HGB Conc 34.8 g/dl (32-36); Mean Corpuscular Hemoglobin 32.8 pg (26-34); Mean Corpuscular Volume 94.4 fl (80-100); Mean Platelet Volume 10.3 fl (7.4-10.4); Monocytes Absolute Auto 0.6 K/mm3 (0.1-0.6); Monocytes Percent Auto 7.5 % (2.6-8.5); Neutrophils Absolute Auto 5.1 K/mm3 (1.3-6.7); Neutrophils Percent Auto 64.9 % (45.5-73.1); Platelet Count Result 148 k/mm3 (150-375); Red Blood Count 4.63 M/mm3 (4.6-6.20); Red Cell Distribution Width 12.1 % (11.5-14.5); White Blood Count 7.8 K/mm3 (4.5-10.0)
[2024-08-21 16:01] LABS: Alanine Aminotransferase 22 U/L (6-50); Albumin Level 3.7 g/dL (3.5-5.1); Alkaline Phosphatase 73 U/L (38-126); Aspartate Amino Transferase 28 U/L (17-59); Bilirubin,Total 1.1 mg/dL (0.2-1.3); Blood Urea Nitrogen 19 mg/dL (9-20); Calcium 8.4 mg/dL (8.4-10.2); Carbon Dioxide 30 mmol/L (22-30); Chloride 102 mmol/L (98-107); Cholesterol 137 mg/dL (0-200); Estimated Glomerular Filt Rate 40; Glucose 167 mg/dL (65-110); Triglycerides 219 mg/dL (<150)
[2024-08-21 16:06] LABS: LDL Cholesterol Direct 72 mg/dL
[2024-08-21 16:26] LABS: Prostate Specific Antigen 0.8 ng/mL (< OR = 4.0)
[2024-08-21 16:38] LABS: Hemoglobin A1C 6.4 % (<5.7)
[2024-08-21 16:40] LABS: Anion Gap 6 mmol/L (4-12); HDL Direct 37 mg/dL; Potassium 3.9 mmol/L (3.4-5.0); Sodium 138 mmol/L (137-145)
== END 2024-08-21 15:14 | disposition home or self-care (01) ==
LOC: ANHLAB 15:14
PROVIDERS: PCP Nurse Practitioner Family; Visit Provider Nurse Practitioner Family
DX: F32.9 Major depressive disorder, single episode, unspecified (principal); F41.9 Anxiety disorder, unspecified; I10 Essential (primary) hypertension; I13.0 Hypertensive heart and chronic kidney disease with heart failure and stage 1 through stage 4 chronic kidney disease, or unspecified chronic kidney disease; N18.30 Chronic kidney disease, stage 3 unspecified; I50.22 Chronic systolic (congestive) heart failure; I44.7 Left bundle-branch block, unspecified; D69.6 Thrombocytopenia, unspecified; E11.29 Type 2 diabetes mellitus with other diabetic kidney complication; Z12.5 Encounter for screening for malignant neoplasm of prostate
CPT/HCPCS: 36415; 80053; 80061; 83036; 84153; 85025; G0103

== ENCOUNTER 2024-11-10 01:11 | Day surgery (SDC) | payer BC, SELFPAY ==
[2024-11-01 12:08] VITALS: BMI 35.6
--- NOTE | 2024-11-09 09:20 | SUR.PREOP ---
Brought to Anesthesiologist Dr. Marroquin's attention that the note from patient's general expeditor stated he has an EF of 20%. Patient does have a pacemaker/defibrillator. Per Dr. Gonzalez patient can proceed and have the procedure done here.
--- OUTSIDE RECORDS SUMMARY | 2024-11-10 01:14 | XMS_ITS | Encounter Summary ---
Author Organization [facility] of [facility] Address [address] [place] [address] Phone Care Team Providers Care Making Machine Operator Name Role Phone Atul Fabian MD Primary Care Provider [phone] Tree Amaya DO Primary Care Provider [phone] Unknown, Notinfile Primary Care Provider Unavail able Rahel Robles NP Primary Care Provider [phone] Encounter Details Date Type Department Care Team (Late st Contact Info) Description 04/13/2017 Orders Only [facility] Provider, MD Fernanda [address] [place] [id number] Social History Tobacco Use Types Packs/Day Years Used Date Smoking Tobacco: Former Sex and Gender Information Value Date Recorded Sex Assigned at Not on file Legal Sex Male 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 Historical Provider [facility] MAXINE FUENTES Final Result documented in this encounter Visit Diagnoses Not on filedocumented in this encounter Care Teams Making Machine Operator Relationship Specialty Start Date End Date Atul Fabian MD PCP - General 01/07/17 09/15/21 Tree Amaya DO PCP - General Internal Medicine 09/16/21 10/18/22 Unknown, Notinfile PCP - General 10/19/22 07/02/24 Rahel Robles NP [address] [facility] [address] [place] [address] PCP - General Nurse Practitioner 07/03/24 documented as of this encounter
--- OUTSIDE RECORDS SUMMARY | 2024-11-10 01:14 | XMS_ITS | Referral Summary ---
Author Organization [facility] Leslie Rodriguez nsion Address [address] [place] [address] [place] [address] Care Team Providers Care Fire Prevention Bureau Captain Name Role Phone Rahel Robles NP Primary Care Provider [phone] Allergies No known active allergies Medications allopurinol (ZYLOPRIM) 100 mg tabletIndicatio ns:prevention of acute gout attack Take 1 tablet (100 mg total) by mouth every morning Active atorvastatin (LIPITOR) 10 mg tabletIndicatio ns:hyperlipidem ia Take 1 tablet (10 mg total) by mouth every morning Active carvedilol (COREG) 25 mg tabletIndicatio ns:hypertension Take 1 tablet (25 mg total) by mouth 2 (two) times a day 0 9 Active HYDROcodone-andi taminophen (NORCO) 10-325 mg per tabletIndicatio ns:Pain Take 1 tablet by mouth 2 (two) times a day 0 9 Active LORazepam (ATIVAN) 0.5 mg tablet Take 1 tablet (0.5 mg total) by mouth as needed for anxiety Active PARoxetine (PAXIL) 20 mg tabletIndicatio ns:Anxiety with Depression Take 1 tablet (20 mg total) by mouth every morning Active traZODone (DESYREL) 100 mg tabletIndicatio ns:insomnia associated with depression Take 1 tablet (100 mg total) by mouth nightly 0 Active indomethacin (INDOCIN) 50 mg capsuleIndicati ons:gout flareups Take 1 capsule (50 mg total) by mouth as needed 0 Active glimepiride (AMARYL) 2 mg tabletIndicatio ns:type 2 diabetes mellitus Take 1 tablet (2 mg total) by mouth 2 (two) times a day 3 Active amLODIPine (NORVASC) 10 mg tabletIndicatio ns:hypertension Take 0.5 tablets (5 mg total) by mouth every morning 1/2 tablet 3 Active Mounjaro 7.5 mg/0.5 mL pen injector INJECT 7.5 MG UNDER THE SKIN ONCE WEEKLY 3 Active valsartan (DIOVAN) 160 mg tablet Take 1 tablet (160 mg total) by mouth daily Active sildenafiL (VIAGRA) 100 mg tablet Take 1 tablet (100 mg total) by mouth daily as needed for erectile dysfunction Active Active Problems Problem Noted Date Diagnosed Date NICM (nonischemic cardiomyopathy) 10/30/2022 Dilated cardiomyopathy 01/02/2019 ICD (implantable cardioverter-defibrillator) in place 01/02/2019 Chronic systolic heart failure 07/17/2015 Left bundle branch block (LBBB) 07/17/2015 Tear of medial cartilage or meniscus of knee, cu rrent 09/26/2013 Knee pain 09/01/2013 Immunizations Immunization Administration Dates Next Due Influenza, Unspecified 07/30/2015 Tdap 05/05/2018 Social History Tobacco Use Types Packs/Day Years Used Date Smoking Tobacco: Former Cigarettes 0.5 30 1 984 - 2013 Passive Smoke Exposure: Current Smokeless Tobacco: Never Tobacco Cessation:Counseling Given: Not Answered Comments: On and off AUDIT-C Answer Date Recorded Q1: How often do you have a drink containing alc ohol? Monthly or less 10/30/2022 Q2: How many drinks containi ng alcohol do you have on a typical day when you are drinking? 1 or 2 10/30/2022 Q3: How often do you have si x or more drinks on one occasion? Never 10/30/2022 Personal Safety Answer Date Recorded Have you ever been in or are you currently in a harmful physical or emotional relationship or is someone making you feel afraid or unsafe? Denies 10/30/2022 Sex and Gender Information Value Date Recorded Sex Assigned at Not on file Legal Sex Male 7:13 PM GENERAL INTERNAL MEDICINE PHYSICIAN Gender Identity Not on file Sexual Orientation Not on file Last Filed Vital Signs Vital Sign Reading Time Taken Comments Blood Pressure 139/87 07/12/2024 11:16 AM GENERAL INTERNAL MEDICINE PHYSICIAN Pulse 83 07/12/2024 11:16 AM GENERAL INTERNAL MEDICINE PHYSICIAN Temperature 36.6 C (97.9 F) 10/30/2022 9:13 AM CDT Respiratory Rate 13 10/30/2022 10:4 5 AM CDT Oxygen Saturation 95% 07/12/2024 11: 16 AM GENERAL INTERNAL MEDICINE PHYSICIAN Inhaled Oxygen Concentration - - Weight 109.1 kg (240 lb 9.6 oz) 024 11:16 AM GENERAL INTERNAL MEDICINE PHYSICIAN Height 177.8 cm (5' 10 ) 07/12/2024 11: 16 AM GENERAL INTERNAL MEDICINE PHYSICIAN Body Mass Index 34.52 07/12/2024 11:16 AM GENERAL INTERNAL MEDICINE PHYSICIAN Plan of Treatment Not on file Medical Devices Implanted Type Area Inspector Glass Or Mirror Device Identifier Shelf Expiration Date Model / Serial / Lot Icd-07/29/2015 Implanted:07/03 by Matt Linn MD PhD (Quantity not on file) ICD Chest Medtronic Cardiac Rhythm Mgmt [id number] VIVA QUAD XT SENIOR DIRECTOR OF STRATEGY-D / / Description:This CIED system is NOT MRI Conditional, since the pulse generator has not been tested for MR Safety. Consequently, this CIED system has not been approved for MRI scanning by the FDA and scanning this system is considered off-label use. TA 01/15/21 Should MRI exams be attempted, this patient must be given informed consent as part of the preMRI work-up of this exam per CIED protocol. Medtronic Inc Cardiac [place] Hf 2 Chamber Df4 Inline Cnctr Is4 [id number] - [id number] - [id number] Implanted:Qty: 1 on 10/30/2022 by Matt Linn MD PhD at [facility] ICD Left: Chest Wall Medtronic Inc 01/28/2024 [id number] / [id number] / Lead (Lv)- 5 Implanted:07/03 by Matt Linn MD PhD (Quantity not on file) Lead Heart Medtronic Cardiac Rhythm Mgmt 4598 ATTAIN PERFORMA S / [id number] / Description:This CIED system is NOT MRI Conditional, since the pulse generator has not been tested for MR Safety. Consequently, this CIED system has not been approved for MRI scanning by the FDA and scanning this system is considered off-label use. TA 01/15/21 Should MRI exams be attempted, this patient must be given informed consent as part of the preMRI work-up of this exam per CIED protocol. Lead (Ra)- 5 Implanted:07/03 by Matt Linn MD PhD (Quantity not on file) Lead Heart Medtronic Cardiac Rhythm Mgmt 5076 CAPSUREFIX NOVUS / [id number] / Description:This CIED system is NOT MRI Conditional, since the pulse generator has not been tested for MR Safety. Consequently, this CIED system has not been approved for MRI scanning by the FDA and scanning this system is considered off-label use. TA 01/15/21 Should MRI exams be attempted, this patient must be given informed consent as part of the preMRI work-up of this exam per CIED protocol. Lead (Rv)- 5 Implanted:07/03 by Matt Linn MD PhD (Quantity not on file) Lead Heart Medtronic Cardiac Rhythm Mgmt 6935M SPRINT QUATTRO SECURE S / [id number] / Description:This CIED system is NOT MRI Conditional, since the pulse generator has not been tested for MR Safety. Consequently, this CIED system has not been approved for MRI scanning by the FDA and scanning this system is considered off-label use. TA 01/15/21 Should MRI exams be attempted, this patient must be given informed consent as part of the preMRI work-up of this exam per CIED protocol. [place] [address] [facility] [employer] [place] [facility] Care Teams Fire Prevention Bureau Captain Relationship Specialty Start Date End Date Rahel Robles NP [address] [place] [address] PCP - General Nurse Practitioner 07/03/24
--- OUTSIDE RECORDS SUMMARY | 2024-11-10 01:14 | XMS_ITS | Clinical Summary ---
Author Organization [facility] Leslie Rodriguez nsion Address [address] [place] [address] [place] [address] Care Team Providers Care Manager Fine Name Role Phone Rahel Robles NP Primary Care Provider [phone] Allergies No known active allergies Medications allopurinol [...] Next Due Influenza, Unspecified 07/30/2015 Tdap 05/05/2018 Surgical History Surgery Date Site/Laterality Comments KNEE ARTHROSCOPY 09/30/2013 - 10/30/2013 Left CARDIAC DEFIBRILLATOR PLACEMENT 07/02/2015 - 08/01/2015 Medtronic KNEE ARTHROSCOPY 08/02/1982 - 08/01/1983 Right ABLATION 08/02/2007 - 08/01/2008 Family History Medical History Relation Name Comments Heart attack Father Family history of myocardial infarction - (Added by TW Conv) Hypertension Father Family history of hypertension - (Added by TW Conv) Hypertension Mother Family history of hypertension - (Added by TW Conv) Relation Name Status Comments Father Mother Social History Tobacco Use Types Packs/Day Years [...] on file Legal Sex Male 7:13 PM JOURNEYMAN CARPENTER Gender Identity Not on file Sexual Orientation Not on file Obstetrics History Last Filed Vital Signs Vital Sign Reading Time Taken Comments Blood Pressure 139/87 07/12/2024 11:16 AM JOURNEYMAN CARPENTER Pulse 83 07/12/2024 11:16 AM JOURNEYMAN CARPENTER Temperature 36.6 C (97.9 F) 10/30/2022 9:13 AM CDT Respiratory Rate 13 10/30/2022 10:4 5 AM CDT Oxygen Saturation 95% 07/12/2024 11: 16 AM JOURNEYMAN CARPENTER Inhaled Oxygen Concentration - - Weight 109.1 kg (240 lb 9.6 oz) 024 11:16 AM JOURNEYMAN CARPENTER Height 177.8 cm (5' 10 ) 07/12/2024 11: 16 AM JOURNEYMAN CARPENTER Body Mass Index 34.52 07/12/2024 11:16 AM JOURNEYMAN CARPENTER Plan of Treatment Health Maintenance Due Date Last Done Comments Colon Cancer Screening-Colonoscopy 1965 Depression Screening 1965 Hepatitis C Screening 1965 Prostate Cancer Screening-PSA 1965 Hepatitis B Screening 1983 Regular Well Visit/Exam 18-64 1983 Pneumococcal vaccine <65 (1 of 2 - PCV) 1984 Zoster Vaccine (1 of 2) 2015 Influenza Vaccine (Season Ended) 2025 07/30/20 15 DTaP/Tdap/Td Vaccine (2 - Td or Tdap) 05/05/202810/2017 Medical Devices Implanted Type Area Health Care Manager Device Identifier Shelf Expiration Date Model / Serial / Lot Icd-07/29/2015 Implanted:07/03 by Matt Linn MD PhD (Quantity not on file) ICD Chest Medtronic Cardiac Rhythm Mgmt [id number] VIVA QUAD XT HANDKERCHIEF CUTTER-D / / Description:This CIED system is NOT [...] exam per CIED protocol. Medtronic Inc Cardiac [place] Hf 2 Chamber Df4 Inline Cnctr Is4 [id number] - [id number] - [id number] Implanted:Qty: 1 on 10/30/2022 by Matt Linn MD PhD at [facility] ICD Left: Chest Wall Medtronic Inc 01/28/2024 [id number] / [id number] / Lead (Lv)- 5 Implanted:07/03 by Matt Linn MD PhD (Quantity not on file) Lead Heart Medtronic Cardiac Rhythm Mgmt 4598 ATTAIN PERFORMA S / [id number] / Description:This CIED system is NOT MRI [...] protocol. Lead (Ra)- 5 Implanted:07/03 by Matt Lnin MD PhD (Quantity not on file) Lead Heart Medtronic Cardiac Rhythm Mgmt 5076 CAPSUREFIX NOVUS / [id number] / Description:This CIED system is NOT MRI [...] Mgmt 6935M SPRINT QUATTRO SECURE S / [id number] / Description:This CIED system is NOT MRI [...] of this exam per CIED protocol. Insurance [place] [employer] [place] [place] [facility] Care Teams Manager Fine Relationship Specialty Start Date End Date Rahel Robles NP [address] [place] [address] PCP - General Nurse Practitioner 07/03/24
--- OUTSIDE RECORDS SUMMARY | 2024-11-10 01:14 | XMS_ITS | Continuity of Care Document ---
Author Organization [facility] Address [address] [place] [address] [place] [address] Phone Care Team Providers Care Glass Installer Name Role Phone Luisito Land MD Unavailable Unavailable Allergies, Adverse Reactions, Alerts Substance Reaction Status Criticality No Known Allergies Active No Inform ation Medications Medication Instructions Dosage Effective Dates (start - stop) Status Comments [place] 5 mg-325 mg tablet take 1 tablet by oral route every 6 hours as needed for pain - Active PRN for pain, avoid driving or operaet machines allopurinol 100 mg tablet take 1 tablet by oral route every day 100 MG - Active Coreg 25 mg tablet take 1 tablet by oral route 2 times every day with food 25 MG - Active losartan 100 mg tablet take 1 tablet by oral route every day 100 MG - Active metformin 500 mg tablet take 1 tablet by oral route 2 times every day with morning and evening meals 500 MG - Active fenofibrate 160 mg tablet take 1 tablet by oral route every day 160 MG - Active Amaryl 1 mg tablet take 1 tablet by oral route every day - Active Procedures Procedure Date OFFICE/OUTPATIENT VISIT, EST PREV VISIT, NEW, AGE 40-64 OFFICE/OUTPATIENT VISIT, NEW Advance Directives Directive Yes / No Effective Date File Name No Information Encounters Encounter Description Practice Location Reason(s) For Visit Diagnoses Date Provider Providers Copied on Encounter [facility], [address] [place], [id number], [place] tel:[phone] [facility] No Information 5 Emery Jorge. [address], [place], [place], [id number] , [place]. tel:[phone] Referring Provider: Axel Nag[address], [place], [place], [id number]. tel:[phone] OFFICE/OUTPA TIENT VISIT, EST [facility], [address], [place], [place], [id number], tel:[phone] [facility] Medicine DM (chief complaint) TH (chief complaint) proteinuri a (chief complaint) HTN (chief complaint) chest pain (chief complaint) Dietary surveillance and counselingBrittle diabetesOther and unspecified hyperlipidemiaVitam in deficiencyProteinur ia 0 5 Emery Jorge. [address] [place], [place], [id number] , [place]. tel:[phone] Referring Provider: Axel [address], [place], [place], [id number]. tel:[phone] PREV VISIT, NEW, AGE 40-64 [facility], [address], [place], [place], [id number], [place] tel:[phone] [facility] Medicine Physical (chief complaint) Routine medical examGoutBrittle diabetesBlood pressure elevated 6 5 Emery Jorge. [address], [place], [place], [id number] , [place]. [phone] Family History Family Member Type Diagnosis Age [...]
--- OUTSIDE RECORDS SUMMARY | 2024-11-10 01:14 | XMS_ITS | Clinical Summary ---
Author Organization [facility] Address [facility] [place] [address] Care Team Providers Care Associate Professor Of Philosophy Name Role Phone Unavailable Primary Care Provider Unavailabl e Social History Tobacco Use Types Packs/Day Years Used Date Smoking Tobacco: Former Sex and Gender Information Value Date Recorded Sex Assigned at Not on file Legal Sex Male 8:25 PM CDT Gender Identity Not on file Sexual Orientation Not on file Last Filed Vital Signs Vital Sign Reading Time Taken Comments Blood Pressure 120/78 05/06/2010 12:21 PM CDT Pulse 68 05/06/2010 12:21 PM CDT Temperature - - Respiratory Rate 18 05/06/2010 12:21 PM CDT Oxygen Saturation - - Inhaled Oxygen Concentration - - Weight 122.9 kg (271 lb) 05/06/2010 12:21 PM CDT Height 179.7 cm (5' 10.75 ) 05/06/2010 12:21 PM CDT Body Mass Index 38.06 05/06/2010 12:21 PM CDT Plan of Treatment Health Maintenance Due Date Last Done Comments Colorectal Cancer Screening Colonoscopy (10 Years) 1965 Annual Physical 1968 Hepatitis C 1983 DTaP, Tdap and Td Vaccines ( 1 - Tdap) 1984 Zoster Vaccines (1 of 2) 2015 COVID-19 Vaccine (2023-2 5 season) 2024 Meningococcal B Vaccine Aged Out No l onger eligible based on patient's age to complete this topic Meningococcal Vaccine Aged Out No swetha alvin eligible based on patient's age to complete this topic Pneumococcal Vaccine: Pediat rics (0 to 5 Years) and At-Risk Patients (6 to 64 Years) Aged Out No longer eligible b ased on patient's age to complete this topic RSV Immunizations Under 20 Months Aged Out No longer eligible based on patient's age to complete this topic
--- OUTSIDE RECORDS SUMMARY | 2024-11-10 01:14 | XMS_ITS | Clinical Summary ---
Author Organization [facility] Address [address] [place] [address] Care Team Providers Care Security Coordinator Name Role Phone Emmanuelle Castellanos MD Unavailable [phone] Source Comments [facility],non-owned Affiliates and Associated Physician Practices is amultiple site organization consisting of ambulatory clinics and hospital sitesin [place], [place], [place] and [place]. This disclosure is being madepursuant to the Care Everywhere program and may not contain all information available regarding this patient. Last updated 18.[facility] Allergies No known active allergies Medications * Be aware that medications may not be up to date on this document. Alwaysverify current medications with the patient. Medication Sig Dispensed Refills Start Date End Date Status LISINOPRIL PO Take by mouth once daily. Active ALLOPURINOL PO Take by mouth once daily. Active Carvedilol (COREG PO) Take by mouth 2 times daily. Active METFORMIN HCL PO Take by mouth 2 times daily. Before and before dinner Active hydrocodone-acetaminop hen (NORCO) 7.5-325 MG tablet Take 1 Tab by mouth every 4 hours as needed for Pain. 40 Tab 0 10/27/2013 Active Active Problems Patient Care Coordination No te Formatting of this note migh t be different from the original. Pt is workcomp Left knee DOI 08 16 2013 [facility]# [id number] Adj -Mahsa Duvall Problem Noted Date Diagnosed Date Tear of medial cartilage or meniscus of knee, cu rrent 09/26/2013 Knee pain 09/01/2013 Social History Tobacco Use Types Packs/Day Years Used Date Smoking Tobacco: Every Day Cigarettes 0.3 5 Alcohol Use Standard Drinks/Week Comments Yes 3.3 (1 standard drink = 0.6 oz p ure alcohol) Sex and Gender Information Value Date Recorded Sex Assigned at Not on file Gender Identity Not on file Sexual Orientation Not on file Last Filed Vital Signs Vital Sign Reading Time Taken Comments Blood Pressure 122/88 10/27/2013 11:01 AM CDT Pulse 73 10/27/2013 11:01 AM CDT Temperature 35.6 C (96 F) 10/27/2013 11:01 AM CDT Respiratory Rate 18 10/27/2013 11:0 1 AM CDT Oxygen Saturation 94% 10/27/2013 11: 00 AM CDT Inhaled Oxygen Concentration - - Weight 114.9 kg (253 lb 3.2 oz) 10/27/2013 7:57 AM CDT Height 177.8 cm (5' 10 ) 10/27/2013 7:57 AM CDT Body Mass Index 36.33 10/27/2013 7:57 AM CDT Plan of Treatment Health Maintenance Due Date Last Done Comments COLOGUARD (AGES 45-75) - COL ON CA SCREENING 1965 COLON MONITORING 1965 COLONOSCOPY - COLON CA SCREENING 1965 CT COLONOGRAPHY - COLON CA SCREENING 1965 Colorectal Cancer Screening 1965 FIT - COLON CA SCREENING 1965 FLEX SIG - COLON CA SCREENING 1965 LIPID TESTING 1965 HIV SCREENING 1980 HEPATITIS C SCREENING 02/28/1983 DTAP/TDAP/TD VACCINES (1 - Tdap) 1984 HEPATITIS B VACCINE (1 of 3 - 19+ 3-dose series) 1984 PNEUMOCOCCAL VACCINE 50+ (1 of 2 - PCV) 1984 PNEUMOCOCCAL VACCINE (1 of 2 - PCV) 1984 ZOSTER VACCINE (1 of 2) 2015 COVID-19 VACCINE ( - 2023-2 5 season) 2024 DEPRESSION SCREENING 08/02/2024 INFLUENZA VACCINE (Season Ended) 2025 HIB VACCINE Aged Out No longer eligi ble based on patient's age to complete this topic HPV VACCINE Aged Out No longer eligi ble based on patient's age to complete this topic MENINGOCOCCAL (Group B) VACC INE SHARED DECISION-MAKING Aged Out No longer eligibl e based on patient's age to complete this topic MENINGOCOCCAL GROUPS A/C/Y/W VACCINE Aged Out No longer eligible b ased on patient's age to complete this topic Care Teams Security Coordinator Relationship Specialty Start Date End Date Emmanuelle Castellanos MD Orthopedic Surgery 09/01/13
[2024-11-10 06:22] VITALS: BP 147/104; PULSE 91; RESP 18; TEMP 36.1; O2SAT 97
[2024-11-10] MEDS: LACTATED RINGERS 1,000 ML 150 ML IV CONT (06:30)
[2024-11-10 07:10] LABS: Glucose Point of Care 139 mg/dl (65-105)
--- NOTE | 2024-11-10 07:16 | P.PNAN_ITS ---
Anes - Initial Pre Proc Eval Procedure: Operation Date: 11/10/24 07:30 Proposed Procedures p Colonoscopy - Yoni Sam MD Date/Time: 11/10/24 07:16 Surgeon: Yoni Sam MD Pre Op Diagnosis: hx of colon polyps Patient Data Age: 59 Gender: M Height: 1.78 m Weight: 109.9 kg Last Vital Signs Temp 97 F L 11/10/24 06:22 Pulse 91 11/10/24 06:22 Resp 18 11/10/24 06:22 BP 147/104 H 11/10/24 06:22 Pulse Ox 97 11/10/24 06:22 O2 Del Method Room Air 11/10/24 06:22 Allergies Allergy/AdvReac Type Severity Reaction Status Date / Time No Known Allergies Allergy Verified 11/10/24 06:19 Home Medications ?Medication ?Instructions ?Recorded ?Confirmed ?Type sildenafil 100 mg tablet 100 mg PO DAILY PRN sexual 11/17/21 11/01/24 Rx activity #20 tabs pen needle, diabetic 32 gauge x #100 ea 11/15/23 08/24/24 Rx 1/4 (Comfort EZ Pen [place]) trazodone 100 mg tablet See Rx Instructions .Route 06/28/24 11/10/24 Rx .COMPLEX #90 tabs indomethacin 50 mg capsule 100 mg (2 x 50 mg) PO QHS PRN pain 08/01/24 11/01/24 Rx #30 caps amlodipine 10 mg tablet (Norvasc) 10 mg PO DAILY #90 tabs 08/14/24 11/10/24 Rx atorvastatin 10 mg tablet 10 mg PO DAILY #90 tabs 08/14/24 11/10/24 Rx carvedilol 25 mg tablet See Rx Instructions .Route 08/14/24 11/10/24 Rx .COMPLEX #270 tabs paroxetine HCl 30 mg tablet (Paxil) 30 mg PO DAILY #90 tabs 08/14/24 11/10/24 Rx valsartan 160 mg tablet 160 mg PO DAILY #90 tabs 08/14/24 11/10/24 Rx tirzepatide 10 mg/0.5 mL 10 mg (0.5 mL) subcut WEEKLY #6 mL 08/24/24 11/10/24 Rx subcutaneous pen injector (Wilman) lorazepam 0.5 mg tablet 0.5 mg PO DAILY PRN anxiety #30 10/06/24 11/01/24 Rx tabs hydrocodone 7.5 mg-acetaminophen 1 tablet PO BID PRN pain #60 tabs 11/06/24 11/10/24 Rx 325 mg tablet Laboratory Tests 11/10/24 07:07 POC Capillary Glucose 139 H mg/dl (65-105) Patient hx anesthesia problems: none Family hx anesthesia problems: none Results Review: All pre-operative results and documents have been reviewed as part of the pre-operative evaluation. FOR[facility]LY [facility] Past Medical History Medical History Colon cancer screening Lumbar degenerative disc disease Osteoarthritis Erectile dysfunction CHF (congestive heart failure) Heart disease Anxiety Chronic pain History of Hgqae-Uubyxfjre-Ggkpb (WPW) syndrome Chronic kidney disease, stage 3 (moderate) Chronic systolic (congestive) heart failure Depression Dyslipidemia Essential hypertension Hx of cardiac pacemaker LBBB (left bundle branch block) Primary osteoarthritis of both knees Type 2 diabetes mellitus with other diabetic kidney complication Surgical History Surgical History Hx of arthroscopy of right knee 2014 History of implantable cardioverter-defibrillator (ICD) placement Family History Family History Mother Family history of malignant neoplasm of ovary Patient's mother is Father Family history of heart disease in male family member before age 55 Patient's father is Other Family history of alcoholism Social History Social History Smoking packs per day: 0.5 Smoking cigarettes per day: 10.0 Years smoked: 10 Smoking pack-years: 5.00 Smoking status: Never smoker Second hand tobacco smoke exposure: Yes Smoking end date: 08/02/13 Alcohol intake: never Alcohol use details: Social Substance use: current Substance use type: marijuana Other substance usage details: OCCASIONALLY Lack of Transportation: No Lack of Food: Never True Current Housing: I Have Housing Concerned About Future Housing: No Difficulty Paying Gas/Electric Bills: No Difficulty Paying for Meds: No Currently Unemployed: No Education: Trade/Vocational Certificate Difficulty w/ Childcare or Family Care: No Living arrangements: with family Occupation/Education: occupation Gender identity (if verbalized by the patient): Male Sexual Orientation (if Verbalized by the Patient): Straight or Heterosexual Spiritual care concerns: No Agree to blood products: Yes Anes - Eval Final PreProcedure Day of Procedure 11/10/24 07:16 Patient weight: normal Heart: regular rate and rhythm Lungs: clear to auscultation Airway: Mallampati scale class III Neurological: alert and oriented Last oral intake: >/= 8 hours ASA classification: IV Emergent: no Anesthetic plan: proceed Anesthesia type and monitoring: general GIVS and standard monitoring Results Review: All pre-operative results and documents have been reviewed as part of the pre- operative evaluation. Informed Consent: The patient's anesthetic plan and its attendant risks and benefits were discussed with the patient/family/POA. Questions were solicited and answers provided to the satisfaction of the patient/family/POA.
--- NOTE | 2024-11-10 07:27 | P.HP_ITS ---
History of Present Illness History of Present Illness Consent: Risks, benefits, and alternatives have been discussed and questions answered. Patient agrees to proceed with procedure. Chief complaint: hx of colon polyps Narrative: Zaki Staley is a 59 year old male with several large TA polyps removed 05/2024 Review of Systems Review of Systems: All systems reviewed & are unremarkable except as noted in HPI and below PMFSH Past Medical History Medical History (Updated 11/10/24 @ 07:28 by Yoni Sam MD) Adenomatous colon polyp Colon cancer screening Lumbar degenerative disc disease Osteoarthritis Erectile dysfunction CHF (congestive heart failure) Heart disease Anxiety Chronic pain History of Xdzst-Txdgemhgg-Atwdr (WPW) syndrome Chronic kidney disease, stage 3 (moderate) Chronic systolic (congestive) heart failure Depression Dyslipidemia Essential hypertension Hx of cardiac pacemaker LBBB (left bundle branch block) Primary osteoarthritis of both knees Type 2 diabetes mellitus with other diabetic kidney complication Surgical History Surgical History Hx of arthroscopy of right knee 2015 History of implantable cardioverter-defibrillator (ICD) placement Family History Family History Mother Family history of malignant neoplasm of ovary Patient's mother is Father Family history of heart disease in male family member before age 55 Patient's father is Other Family history of alcoholism Social History Social History (Reviewed 08/24/24 @ 14:28 by Faby Myles [facility]) Smoking packs per day: 0.5 Smoking cigarettes per day: 10.0 Years smoked: 10 Smoking pack-years: 5.00 Smoking status: Never smoker Second hand tobacco smoke exposure: Yes Smoking end date: 08/02/13 Alcohol intake: never Alcohol use details: Social Substance use: current Substance use type: marijuana Other substance usage details: OCCASIONALLY Lack of Transportation: No Lack of Food: Never True Current Housing: I Have Housing Concerned About Future Housing: No Difficulty Paying Gas/Electric Bills: No Difficulty Paying for Meds: No Currently Unemployed: No Education: Trade/Vocational Certificate Difficulty w/ Childcare or Family Care: No Living arrangements: with family Occupation/Education: occupation Gender identity (if verbalized by the patient): Male Sexual Orientation (if Verbalized by the Patient): Straight or Heterosexual Spiritual care concerns: No Agree to blood products: Yes Meds Home Medications and Allergies Home Medications ?Medication ?Instructions ?Recorded ?Confirmed ?Type sildenafil 100 mg tablet 100 mg PO DAILY PRN sexual 11/17/21 11/01/24 Rx activity #20 tabs pen needle, diabetic 32 gauge x #100 ea 11/15/23 08/24/24 Rx 1/4 (Comfort EZ Pen [place]) trazodone 100 mg tablet See Rx Instructions .Route 06/28/24 11/10/24 Rx .COMPLEX #90 tabs indomethacin 50 mg capsule 100 mg (2 x 50 mg) PO QHS PRN pain 08/01/24 11/01/24 Rx #30 caps amlodipine 10 mg tablet (Norvasc) 10 mg PO DAILY #90 tabs 08/14/24 11/10/24 Rx atorvastatin 10 mg tablet 10 mg PO DAILY #90 tabs 08/14/24 11/10/24 Rx carvedilol 25 mg tablet See Rx Instructions .Route 08/14/24 11/10/24 Rx .COMPLEX #270 tabs paroxetine HCl 30 mg tablet (Paxil) 30 mg PO DAILY #90 tabs 08/14/24 11/10/24 Rx valsartan 160 mg tablet 160 mg PO DAILY #90 tabs 08/14/24 11/10/24 Rx tirzepatide 10 mg/0.5 mL 10 mg (0.5 mL) subcut WEEKLY #6 mL 08/24/24 11/10/24 Rx subcutaneous pen injector (Wilman) lorazepam 0.5 mg tablet 0.5 mg PO DAILY PRN anxiety #30 10/06/24 11/01/24 Rx tabs hydrocodone 7.5 mg-acetaminophen 1 tablet PO BID PRN pain #60 tabs 11/06/24 11/10/24 Rx 325 mg tablet Allergies Allergy/AdvReac Type Severity Reaction Status Date / Time No Known Allergies Allergy Verified 11/10/24 06:19 Vital Signs Vital Signs - 24 hr 11/10/24 06:22 Temperature 97 F L Pulse Rate 91 Respiratory Rate 18 Blood Pressure 147/104 H Pulse Oximetry 97 Oxygen Delivery Room Air Exam Const: General: comfortable and no acute distress HENMT: Face/Nose/Sinus: Normal nares present Eyes: General: appearance normal, both eyes and all related structures Neck: Neck: no JVD Resp: Auscultation: clear to auscultation bilaterally Cardio: Rate: regular rate Rhythm: regular rhythm GI: Inspection: non-distended GI Palp: Yes Soft to palpation Skin: General skin exam: normal color Neuro: Speech: normal speech Extrem: General: normal to inspection Psych: Mental Status: mental status grossly normal Assessment and Plan Assessment and plan (1) Adenomatous colon polyp: Code(s): D12.6 - Benign neoplasm of colon, unspecified Status: Acute Assessment and Plan: colonoscopy
[2024-11-10 07:52] VITALS: BP 132/84; PULSE 80; RESP 13; O2SAT 98
[2024-11-10 08:02] VITALS: BP 136/88; PULSE 78; RESP 19; O2SAT 96
[2024-11-10 08:09] LABS: Glucose Point of Care 121 mg/dl (65-105)
[2024-11-10 08:12] VITALS: BP 136/89; PULSE 78; RESP 19; O2SAT 98
== END 2024-11-10 08:27 | disposition home or self-care (01) ==
PROVIDERS: PCP Nurse Practitioner Family; Referring Provider Internal Medicine Gastroenterology; Visit Provider Internal Medicine Gastroenterology
PROC: 0DJD8ZZ Inspection of Lower Intestinal Tract, Via Natural or Artificial Opening Endoscopic (ICD-10-PCS; CPT 45378; principal; 2024-11-10 07:30)
DX: Z12.11 Encounter for screening for malignant neoplasm of colon (principal); D12.0 Benign neoplasm of cecum; D12.3 Benign neoplasm of transverse colon; D12.5 Benign neoplasm of sigmoid colon; D12.8 Benign neoplasm of rectum; K64.8 Other hemorrhoids; K57.30 Diverticulosis of large intestine without perforation or abscess without bleeding; E11.22 Type 2 diabetes mellitus with diabetic chronic kidney disease; I12.9 Hypertensive chronic kidney disease with stage 1 through stage 4 chronic kidney disease, or unspecified chronic kidney disease; N18.30 Chronic kidney disease, stage 3 unspecified; I11.0 Hypertensive heart disease with heart failure; I50.9 Heart failure, unspecified; E78.5 Hyperlipidemia, unspecified; M17.0 Bilateral primary osteoarthritis of knee; N52.9 Male erectile dysfunction, unspecified; F32.A Depression, unspecified; F41.9 Anxiety disorder, unspecified; M51.369 Other intervertebral disc degeneration, lumbar region without mention of lumbar back pain or lower extremity pain; I44.7 Left bundle-branch block, unspecified; G89.29 Other chronic pain; F12.90 Cannabis use, unspecified, uncomplicated; Z79.85 Long-term (current) use of injectable non-insulin antidiabetic drugs; Z79.891 Long term (current) use of opiate analgesic; Z98.890 Other specified postprocedural states; Z95.0 Presence of cardiac pacemaker; Z86.79 Personal history of other diseases of the circulatory system; Z80.41 Family history of malignant neoplasm of ovary; Z82.49 Family history of ischemic heart disease and other diseases of the circulatory system
CPT/HCPCS: 45385; 82948; 88305; J2704; J7120

== ENCOUNTER 2025-02-28 07:30 | Outpatient (CLI) | payer BC, SELFPAY ==
--- OUTSIDE RECORDS SUMMARY | 2025-02-28 07:33 | XMS_ITS | Encounter Summary ---
Author Organization [facility] Address [address] [place] [address] Phone Care Team Providers Care Clinical Counselor Name Role Phone Rahel Robles NP Primary Care Provider [phone] Encounter Details Date Type Department Care Team (Late st Contact Info) Description 01/18/2025 Orders Only [facility] Cardiology [address] [place] [address] Matt Linn MD PhD [address] [address] Social History Tobacco Use Types Packs/Day Years Used Date Smoking Tobacco: Former Cigarettes 0.5 30 1 2013 Passive Smoke Exposure: Current Smokeless Tobacco: Never Comments:On and off AUDIT-C Answer Date Recorded Q1: [...] on file Legal Sex Male 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 Gender Identity Not on file Sexual Orientation Not on file documented as of this encounter Plan of Treatment Not on file documented as of this encounter Procedures Procedure Name Priority Date/Time Associated Diagnosis Comments DEVICE CHECK - REMOTE Routine 01/18/2025 12:08 AM CDT documented in this encounter Results * DEVICE CHECK - REMOTE (01/18/2025 12:08 AM CDT) Anatomical Region Laterality Modality Other 01/18/2025 12:0 8 AM CDT Narrative 02/27/2025 8:36 PM CDT Interpretation Summary: Battery and Leads (BL) Normal parameters noted on battery and lead(s) --- 5.2 yrs remaining longevity (implanted 2022). Lead impedance, sensing, and RA/RV threshold trends stable and appropriate. No short V-V intervals. Capture threshold chronically elevated --- LV threshold 2.0/0.4. Trend is stable. LV output is programmed Adaptive, currently 3.5/0.4. Presenting Rhythm (VT) Atrial Sensing-Ventricular Pacing (-FLASH DESIGNER) --- /FLASH DESIGNER 90 bpm. Arrhythmic events (AE) No new arrhythmic events in monitoring period --- Since 11/15/24: No AHR or VHR episodes. Transmission Information (TI) Device Summary Report Follow Up (FU) Patient's primary treating physician will be apprised of findings Procedure Note Matt Linn MD PhD - 02/27/2025 Interpretation Summary: Battery and Leads (BL) Normal parameters noted on battery and lead(s) --- 5.2 yrs remaininglongevity (implanted 2022). Lead impedance, sensing, and RA/RVthreshold trends stable and appropriate. No short V-V intervals. Capture threshold chronically elevated --- LV threshold 2.0/0.4. Trendis stable. LV output is programmed Adaptive, currently 3.5/0.4. Presenting Rhythm (VT) Atrial Sensing-Ventricular Pacing (-FLASH DESIGNER) --- /FLASH DESIGNER 90 bpm. Arrhythmic events (AE) No new arrhythmic events in monitoring period --- Since 11/15/24: No AHRor VHR episodes. Transmission Information (TI) Device Summary Report Follow Up (FU) Patient's primary treating physician will be apprised of findings us Matt Linn MD PhD CV CARDIAC SERVICES PROCEDURES Final Result documented in this encounter Visit Diagnoses Not on filedocumented in this encounter Care Teams Clinical Counselor Relationship Specialty Start Date End Date Rahel Robles NP [address] [place] [address] PCP - General Nurse Practitioner 07/03/24 documented as of this encounter
--- OUTSIDE RECORDS SUMMARY | 2025-02-28 07:33 | XMS_ITS | Referral Summary ---
Author Organization [facility] Address [address] [place] [address] [place] [address] Care Team Providers Care Paper Control Clerk Name Role Phone Rahel Robles NP Primary Care Provider [phone] Encounters Date Type Department Care Team Description 01/18/2025 Orders Only [facility] Cardiology [address] [place] [address] Matt Linn MD PhD from Last 3 Months Allergies No known active allergies Medications allopurinol [...] Tobacco: Never Tobacco Cessation:Counseling Given: Not Answered Comments:On and off AUDIT-C Answer Date Recorded [...] on file Legal Sex Male 7:13 PM AGILE TEST LEAD Gender Identity Not on file Sexual Orientation Not on file Last Filed Vital Signs Vital Sign Reading Time Taken Comments Blood Pressure 139/87 07/12/2024 11:16 AM AGILE TEST LEAD Pulse 83 07/12/2024 11:16 AM AGILE TEST LEAD Temperature 36.6 C (97.9 F) 10/30/2022 9:13 AM CDT Respiratory Rate 13 10/30/2022 10:4 5 AM CDT Oxygen Saturation 95% 07/12/2024 11: 16 AM AGILE TEST LEAD Inhaled Oxygen Concentration - - Weight 109.1 kg (240 lb 9.6 oz) 024 11:16 AM AGILE TEST LEAD Height 177.8 cm (5' 10) 07/12/2024 11: 16 AM AGILE TEST LEAD Body Mass Index 34.52 07/12/2024 11:16 AM AGILE TEST LEAD Plan of Treatment Not on file Medical Devices Implanted Type Area Cooker Cleaner Device Identifier Shelf Expiration Date Model / Serial / Lot Icd-07/29/2015 Implanted:07/03 by Matt Linn MD PhD (Quantity not on file) ICD Chest Medtronic Cardiac Rhythm Mgmt [id number] VIVA QUAD XT CARPENTER ROUGH-D / / Description:This CIED system is NOT [...] exam per CIED protocol. [employer] Inc Cardiac [place] Hf 2 Chamber Df4 Inline Cnctr Is4 [id number] - [id number] - [id number] Implanted:Qty: 1 on 10/30/2022 by Matt Linn MD PhD at [facility] ICD Left: Chest Wall [employer] Inc 01/28/2024 [id number] / [id number] / Lead (Lv)- 5 Implanted:07/03 by Matt Linn MD PhD (Quantity not on file) Lead Heart Medtronic Cardiac Rhythm Mgmt 4598 ATTAIN PERFORMA S / [id number] / Description:This CIED system is NOT MRI [...] Cardiac Rhythm Mgmt 5076 CAPSUREFIX NOVUS / [id number] / Description:This CIED system is NOT MRI [...] Mgmt 6935M SPRINT QUATTRO SECURE S / [id number] / Description:This CIED system is NOT MRI [...] work-up of this exam per CIED protocol. Procedures Procedure Name Priority Date/Time Associated Diagnosis Comments DEVICE CHECK - REMOTE Routine 01/18/2025 12:08 AM CDT from Last 3 Months Results * DEVICE CHECK - REMOTE (01/18/2025 [...] is programmed Adaptive, currently 3.5/0.4. Presenting Rhythm (AL) Atrial Sensing-Ventricular Pacing (-GUITAR MAKER) --- /GUITAR MAKER 90 bpm. Arrhythmic events (AE) No new [...] is programmed Adaptive, currently 3.5/0.4. Presenting Rhythm (AL) Atrial Sensing-Ventricular Pacing (-GUITAR MAKER) --- /GUITAR MAKER 90 bpm. Arrhythmic events (AE) No new arrhythmic events in monitoring period --- Since 11/15/24: No AHRor VHR episodes. Transmission Information (TI) Device Summary Report Follow Up (FU) Patient's primary treating physician will be apprised of findings Matt Linn MD PhD CV CARDIAC SERVICES PROCEDURES Final Result from Last 3 Months Insurance [facility] Care Teams Paper Control Clerk Relationship Specialty Start Date End Date Rahel Robles NP [address] [facility] 1 [place] [address] PCP - General Nurse Practitioner 07/03/24
--- OUTSIDE RECORDS SUMMARY | 2025-02-28 07:33 | XMS_ITS | Encounter Summary ---
Author Organization [facility] Address [address] [place] [address] Phone Care Team Providers Care License Clerk Name Role Phone Atul Fabian MD Primary Care Provider [phone] Tree Amaya DO Primary Care Provider [phone] Unknown, Notinfile Primary Care Provider Unavail able Rahel Robles NP Primary Care Provider Encounter Details Date Type Department Care Team (Late st Contact Info) Description 04/13/2017 Orders Only [facility] Provider, MD Fernanda [address] [place] [address] Social History Tobacco Use Types Packs/Day Years Used Date Smoking Tobacco: Former Sex and Gender Information Value Date Recorded Sex Assigned at Not on file Legal Sex Male 7:[address] Gender Identity Not on file Sexual Orientation [...] on filedocumented in this encounter Care Teams License Clerk Relationship Specialty Start Date End Date Atul Fabian MD PCP - General 01/07/17 09/15/21 Tree Amaya DO PCP - General Internal Medicine 09/16/21 10/18/22 Unknown, Notinfile PCP - General 10/19/22 07/02/24 Rahel Robles NP [address] [facility] [address] [place] [address] PCP - General Nurse Practitioner 07/03/24 documented as of this encounter
--- OUTSIDE RECORDS SUMMARY | 2025-02-28 07:33 | XMS_ITS | Clinical Summary ---
Author Organization [facility] Address [address] [place] [address] Care Team Providers Care Welder Apprentice Name Role Phone Emmanuelle Castellanos MD Unavailable [phone] Source Comments [facility],non-owned Affiliates and Associated Physician Practices is amultiple site organization consisting of ambulatory clinics and hospital sitesin [place], [place], [place] and [place]. This disclosure is being madepursuant to the Care Everywhere program and may not contain all information available regarding this patient. Last updated 18.[facility] Allergies No known active allergies Medications * Be aware that medications may not be up to date on this document. Alwaysverify current medications with the patient. LISINOPRIL PO Take by mouth once daily. Active ALLOPURINOL PO Take by mouth once daily. Active Carvedilol (COREG PO) Take by mouth 2 times daily. Active METFORMIN HCL PO Take by mouth 2 times daily. Before and before dinner Active hydrocodone-acet aminophen (NORCO) 7.5-325 MG tablet Take 1 Tab by mouth every 4 hours as needed for Pain. 40 Tab 0 10/27/2013 Active Active Problems Patient Care Coordination No te Formatting of this note migh t be different from the original. Pt is workcomp Left knee DOI 08 16 2013 [facility]# [id number] Adj -Mahsa Duvall Problem Noted Date Diagnosed [...] at Not on file Legal Sex Male 12:14 PM COUPLER Gender Identity Not on file Sexual Orientation [...] 7:57 AM CDT Height 177.8 cm (5' 10) 10/27/2013 7:57 AM CDT Body Mass Index [...] 50+ (1 of 2 - PCV) 1984 ZOSTER VACCINE (1 of 2) 2015 COVID-19 VACCINE (2023-2 5 season) 2024 DEPRESSION SCREENING 08/02/2024 INFLUENZA VACCINE (#1) 2025 HIB VACCINE Aged Out No longer [...] on patient's age to complete this topic Insurance [facility] SELF PAY NO INSURANCE Member Subscriber Plan / Payer (Ef fective for All Dates) Name:Zaki Staley Member ID:Not on file Relation to Subscriber:Not on file Name:ZAKI STALEY Subscriber ID:Not on file (Home) Address: [address] [place] [id number] Payer ID:Not on file Group ID:Not on file Type:Self Pay Address: [facility] ANTH PAYOR GENERIC ANTHEM PAYOR GENERIC Care Teams Welder Apprentice Relationship Specialty Start Date End Date Emmanuelle Castellanos MD Orthopedic Surgery 09/01/13
--- OUTSIDE RECORDS SUMMARY | 2025-02-28 07:33 | XMS_ITS | Clinical Summary ---
Author Organization [facility] Leslie Rodriguez nsion Address [address] [place] [address] [place] [address] Care Team Providers Care Manager Entry Name Role Phone Rahel Robles NP Primary Care Provider [phone] Allergies No known active allergies Medications allopurinol [...] knee, cu rrent 09/26/2013 Knee pain 09/01/2013 Encounters Date Type Department Care Team Description 01/18/2025 Orders Only 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 Gender Identity Not on file Sexual Orientation Not on file Obstetrics History Last Filed Vital Signs Vital Sign Reading Time Taken Comments Blood Pressure 139/87 07/12/2024 11:16 AM NATURAL GAS TREATING UNIT OPERATOR Pulse 83 07/12/2024 11:16 AM NATURAL GAS TREATING UNIT OPERATOR Temperature 36.6 C (97.9 F) 10/30/2022 9:13 AM CDT Respiratory Rate 13 10/30/2022 10:4 5 AM CDT Oxygen Saturation 95% 07/12/2024 11: 16 AM NATURAL GAS TREATING UNIT OPERATOR Inhaled Oxygen Concentration - - Weight 109.1 kg (240 lb 9.6 oz) 024 11:16 AM NATURAL GAS TREATING UNIT OPERATOR Height 177.8 cm (5' 10) 07/12/2024 11: 16 AM NATURAL GAS TREATING UNIT OPERATOR Body Mass Index 34.52 07/12/2024 11:16 AM NATURAL GAS TREATING UNIT OPERATOR Plan of Treatment Health Maintenance Due Date Last Done Comments Colon Cancer Screening-Colonoscopy 1965 Depression Screening 1965 Hepatitis C Screening 1965 Prostate Cancer Screening-PSA 1965 Hepatitis B Screening 1983 Regular Well Visit/Exam 18-64 1983 Pneumococcal vaccine <65 (1 of 2 - PCV) 1984 Zoster Vaccine (1 of 2) 2015 Influenza Vaccine (#1) 2025 07/30/2015 DTaP/Tdap/Td Vaccine (2 - Td or Tdap) 05/05/202810/2017 Medical Devices Implanted Type Area Support Coordinator Device Identifier Shelf Expiration Date Model / Serial / Lot Icd-07/29/2015 Implanted:07/03 by Matt Linn MD PhD (Quantity not on file) ICD Chest Medtronic Cardiac Rhythm Mgmt [id number] VIVA QUAD XT MANAGER SKILLED-D / / Description:This CIED system is NOT [...] exam per CIED protocol. Medtronic Inc Cardiac [place] Hf 2 Chamber Df4 Inline Cnctr Is4 [id number] - [id number] - [id number] Implanted:Qty: 1 on 10/30/2022 by Matt Linn MD PhD at [facility] ICD Left: Chest Wall Medtronic Inc 01/28/2024 [id number] / [id number] / Lead (Lv)- 5 Implanted:07/03 by Matt Linn MD PhD (Quantity not on file) Lead Heart Medtronic Cardiac Rhythm Mgmt 4598 ATTAIN PERFORMA S / [id number] / Description:This CIED system is NOT MRI [...] Cardiac Rhythm Mgmt 5076 CAPSUREFIX NOVUS / [id number] / Description:This CIED system is NOT MRI [...] Mgmt 6935M SPRINT QUATTRO SECURE S / [id number] / Description:This CIED system is NOT MRI [...] is programmed Adaptive, currently 3.5/0.4. Presenting Rhythm (FL) Atrial Sensing-Ventricular Pacing (-MANUFACTURING MECHANIC) --- /MANUFACTURING MECHANIC 90 bpm. Arrhythmic events (AE) No new [...] is programmed Adaptive, currently 3.5/0.4. Presenting Rhythm (FL) Atrial Sensing-Ventricular Pacing (-MANUFACTURING MECHANIC) --- /MANUFACTURING MECHANIC 90 bpm. Arrhythmic events (AE) No new arrhythmic events in monitoring period --- Since 11/15/24: No AHRor VHR episodes. Transmission Information (TI) Device Summary Report Follow Up (FU) Patient's primary treating physician will be apprised of findings Matt Linn MD PhD CV CARDIAC SERVICES PROCEDURES Final Result from Last 3 Months Insurance [employer] [place] [employer] Care Teams Manager Entry Relationship Specialty Start Date End Date Rahel Robles NP [address] [place] [address] PCP - General Nurse Practitioner 07/03/24
--- OUTSIDE RECORDS SUMMARY | 2025-02-28 07:33 | XMS_ITS | Continuity of Care Document ---
Author Organization [facility] Address [email or web address] [address] Phone Care Team Providers Care Lie Detector Operator Name Role Phone Luisito Land MD Unavailable [...] route every day 100 MG - Active [place] 5 mg-325 mg tablet take 1 tablet [...] Diagnoses Date Provider Providers Copied on Encounter [facility], [address] [place], [id number], [place] tel:[phone] [facility] No Information 5 Emery Jorge. [address], [place], [place], [id number] , [place]. tel:[phone] Referring Provider: Axel Nagel [address], [place], [place], [id number]. tel:[phone] OFFICE/OUTPA TIENT VISIT, EST [facility], [address], [place], [place], [id number], tel:[phone] [facility] DM (chief complaint) TH (chief complaint) proteinuri a (chief complaint) HTN (chief complaint) chest pain (chief complaint) Dietary surveillance and counselingBrittle diabetesOther and unspecified hyperlipidemiaVitam in deficiencyProteinur ia 0 5 Emer[address] Jorge[address], [place], [id number] , [place]. tel:[phone] Referring Provider: Axel Nagel [address], [place], [place], [id number]. tel:[phone] PREV VISIT, NEW, AGE 40-64 [facility], [address], [place], [place], [id number], [place] tel:[phone] [facility] Physical (chief complaint) Routine medical examGoutBrittle diabetesBlood pressure elevated 6 5 Emery Jorge. [address], [place], [place], [address] , [place]. [phone] Family History Family Member Type Diagnosis Age At Onset Father Problem (finding) stent 62 Father Problem (finding) Coronary artery disease Mother Problem (finding) ovarian [place] Payers Payer name Insurance type Covered democrat ID Authoriza tion(s) No Information Social History [...]
--- OUTSIDE RECORDS SUMMARY | 2025-02-28 07:33 | XMS_ITS | Clinical Summary ---
Author Organization [facility] Address [facility] [place] [address] Care Team Providers Care Audio Visual Director Name Role Phone Unavailable Primary Care Provider [...] 12:21 PM CDT Height 179.7 cm (5' 10.75) 05/06/2010 12:21 PM CDT Body Mass Index 38.06 05/06/2010 12:21 PM CDT Plan of Treatment Health Maintenance Due Date Last Done Comments Colorectal Cancer Screening Colonoscopy (10 Years) 1965 Annual Physical 1968 Hepatitis C 1983 DTaP, Tdap and Td Vaccines ( 1 - Tdap) 1984 Pneumococcal Vaccine: 50+ Ye ars (1 of 1 - PCV) 2015 Zoster Vaccines (1 of 2) 2015 COVID-19 Vaccine ( - 2023-2 5 season) 2024 Meningococcal B Vaccine Aged Out No l onger eligible based on patient's age to complete this topic Meningococcal Vaccine Aged Out No swetha alvin eligible based on patient's age to complete this topic RSV Immunizations Under 20 Months Aged Out No longer eligible based on patient's age to complete this topic
[2025-02-28 08:45] LABS: Alanine Aminotransferase 32 U/L (6-50); Albumin Level 3.6 g/dL (3.5-5.1); Alkaline Phosphatase 75 U/L (38-126); Anion Gap 6 mmol/L (4-12); Aspartate Amino Transferase 38 U/L (17-59); Bilirubin,Total 1.2 mg/dL (0.2-1.3); Blood Urea Nitrogen 16 mg/dL (9-20); Calcium 8.7 mg/dL (8.4-10.2); Carbon Dioxide 22 mmol/L (22-30); Chloride 108 mmol/L (98-107); Estimated Glomerular Filt Rate 32; Glucose 160 mg/dL (65-110); Potassium 4.2 mmol/L (3.4-5.0); Sodium 136 mmol/L (137-145); Total Protein 7.0 g/dL (6.3-8.2)
[2025-02-28 11:07] LABS: Cannabinoid Screen Urine Positive (Negative)
[2025-02-28 11:30] LABS: Hemoglobin A1C 6.3 % (<5.7)
[2025-02-28 11:42] LABS: MALB Creatinine Ratio > 962.0 mg/g (0-30)
== END 2025-02-28 07:31 | disposition home or self-care (01) ==
LOC: ANHLAB 07:31
PROVIDERS: PCP Nurse Practitioner Family; Visit Provider Nurse Practitioner Family
DX: F41.9 Anxiety disorder, unspecified (principal); I50.22 Chronic systolic (congestive) heart failure; E78.5 Hyperlipidemia, unspecified; E11.29 Type 2 diabetes mellitus with other diabetic kidney complication; E11.22 Type 2 diabetes mellitus with diabetic chronic kidney disease; Z12.5 Encounter for screening for malignant neoplasm of prostate; M17.0 Bilateral primary osteoarthritis of knee; I12.9 Hypertensive chronic kidney disease with stage 1 through stage 4 chronic kidney disease, or unspecified chronic kidney disease; N18.30 Chronic kidney disease, stage 3 unspecified
CPT/HCPCS: 36415; 80053; 80307; 82043; 83036

== ENCOUNTER 2025-04-12 14:09 | Outpatient (CLI) | payer BC, SELFPAY ==
--- OUTSIDE RECORDS SUMMARY | 2015-02-26 05:20 | XMS_ITS | Continuity of Care Document ---
Author Organization [facility] Address [address] [place] [address] [place] [address] Phone Care Team Providers Care Network Control Operators Supervisor Name Role Phone Luisito Land MD Unavailable Unavailable Allergies, Adverse Reactions, Alerts Substance Reaction Status Criticality No Known Allergies Active No Inform ation Medications Medication Instructions Dosage Effective Dates (start - stop) Status Comments Amaryl 1 mg tablet take 1 tablet by oral route every day - Active fenofibrate 160 mg tablet take 1 tablet by oral route every day 160 MG - Active metformin 500 mg tablet take 1 tablet by oral route 2 times every day with morning and evening meals 500 MG - Active losartan 100 mg tablet take 1 tablet by oral route every day 100 MG - Active Coreg 25 mg tablet take 1 tablet by oral route 2 times every day with food 25 MG - Active allopurinol 100 mg tablet take 1 tablet by oral route every day 100 MG - Active [place] 5 mg-325 mg tablet take 1 tablet by oral route every 6 hours as needed for pain - Active PRN for pain, avoid driving or operaet machines Procedures Procedure Date OFFICE/OUTPATIENT VISIT, EST PREV VISIT, NEW, AGE 40-64 OFFICE/OUTPATIENT VISIT, NEW Advance Directives Directive Yes / No Effective Date File Name No Information Encounters Encounter Description Practice Location Reason(s) For Visit Diagnoses Date Provider Providers Copied on Encounter [facility], [address] [place], [id number], [place] tel:[phone] [facility] No Information 5 Emery Jorge. [address], [place], [place], [id number] , [place]. tel:[phone] Referring Provider: Axel Nagel [address], [place], [place], [id number]. tel:[phone] OFFICE/OUTPA TIENT VISIT, EST [facility], [address], [place], [place], [id number], tel:[phone] [facility] Medicine DM (chief complaint) TH (chief complaint) proteinuri a (chief complaint) HTN (chief complaint) chest pain (chief complaint) Dietary surveillance and counselingBrittle diabetesOther and unspecified hyperlipidemiaVitam in deficiencyProteinur ia 0 5 Emery Jorge. [address], [place], [id number] , [place]. tel:[phone] Referring Provider: Axel Nagel [address], [place], [place], [id number]. tel:[phone] PREV VISIT, NEW, AGE 40-64 [facility], [address], [place], [place], [id number], [place] tel:[phone] [facility] Medicine Physical (chief complaint) Routine medical examGoutBrittle diabetesBlood pressure elevated 6 5 Emery Jorge. [address], [place], [place], [id number] , [place]. 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 Pt t akes coreg and losartan. His BP is ok TH Pt has elevated TG. Pt eats a lot of carb and sweet DM Pt has DM. His A 1c is over 8.5. Pt does not check his BG at home. Pt denies any polyruia, polydipsia. Pt deneis any numbness chest pain The patient pres ents with a complaint of chest pain. The patient does not complain of any pain. The patient denies chest pain, dyspnea, fatigue, palpitations and vomiting. The patient denies any abdominal pain, claudication or weight gain. PT has intermittent chest pressure for several months. Pt has some nauea with it. Pt denies any chest pain now. Pt denies any SOB. Pt denies any radiation of pain to his neck or arm. Pt denies any exertional chest pain. NO acute pain now. proteinuria Pt has proteinur ia. Pt denies any urine output problem Physical Pt needs annual physical. Pt has history of gout. Pt takes allopurinol and indocin PRN. Pt denies any gout attacks. Pt has ? DM and he takes metformin. His last A1c was 7.3 per patient. Pt denies any polyruia, polydipsia. He does not check his BG at home. Pt recently went to ER for chest pain and he has some ? pericardial effusion around his heart. Pt denies any chest pain now. Pt denies any SOB. Pt has both knee pain. Pt had right knee surgery and failed hyalgan shot. Pt had bilateral knee surery due to arthritis Instructions Date Instruction Additional Infor mation Prescribed Activity and Exercise Education Related to Dietary Surveillance and Counseling Prescribed Diet Educ ation/Lifestyle Education Regarding Diet Related to Dietary Surveillance and Counseling Assessments Type Assessment Date No Information
--- NOTE | ~2025-04-12 | US_ITS ---
EXAMINATION: US renal BI, 04/12/2025 14:20 CDT HISTORY: F41.9 - Anxiety disorder, unspecified Comparison: None Technique: Cabrera-scale and color Doppler images were obtained. Findings: KIDNEYS: The renal cortices are thinned and echogenic, no solid masses or calculi, no hydronephrosis. Right Kidney: Right kidney midpole simple cyst 1.3 x 1.4 cm. Right kidney measures 9.5 x 4.7 x 5.6 cm. Left Kidney: The left kidney midpole simple cyst 1 x 1 cm. Left kidney 12.2 x 6.7 x 5 cm. Bladder: The bladder is unremarkable. . Impression: 1. Mild medical renal disease. No obstruction. Bilateral simple renal cysts Reviewed, dictated and finalized at location A. Impression: 1. Mild medical renal disease. No obstruction. Bilateral simple renal cysts
[2025-04-12 15:53] LABS: Hematocrit 41.2 % (42.0-52.0); Hemoglobin 14.1 g/dL (14.0-18.0); Immature Granulocyte Percent A 0.2 % (0-0.5); Lymphocytes Absolute Auto 2.14 K/mm3 (0.9-3.2); Mean Corpuscular HGB Conc 34.2 g/dl (32-36); Mean Corpuscular Hemoglobin 32.6 pg (26-34); Mean Corpuscular Volume 95.2 fl (80-100); Nucleated Red Blood Cells Absolute Auto 0.000 K/mm3 (0.0-0.012); Nucleated Red Blood Cells Perc 0.0 % (0.0-0.2); Platelet Count Result 153 k/mm3 (150-375); Red Blood Count 4.33 M/mm3 (4.6-6.20); White Blood Count 8.2 K/mm3 (4.5-10.0)
--- OUTSIDE RECORDS SUMMARY | 2025-04-12 15:56 | XMS_ITS | Encounter Summary ---
Author Organization [facility] Address [address] [place] [address] Phone Care Team Providers Care Treasury Representative Name Role Phone Atul Fabian MD Primary Care Provider [phone] Tree Amaya DO Primary Care Provider [phone] Unknown, Notinfile Primary Care Provider Unavail able Rahel Robles NP Primary Care Provider [phone] Encounter Details Date Type Department Care Team (Late st Contact Info) Description 04/13/2017 Orders Only [facility] Provider, MD Fernanda [address] [place] [address] Social History Tobacco Use Types Packs/Day Years Used Date Smoking Tobacco: Former Sex and Gender Information Value Date Recorded Sex Assigned at Not on file 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
--- OUTSIDE RECORDS SUMMARY | 2025-04-12 15:56 | XMS_ITS | Clinical Summary ---
Author Organization [facility] Address [address] [place] [address] Care Team Providers Care Cut Roll Machine Offbearer Name Role Phone Unavailable Primary Care Provider [...] COVID-19 Vaccine ( - 2023-2 5 season) 2025 RSV Immunization or 60+ Years (1 - 1-dose 75+ series) 2040 Meningococcal B Vaccine Aged Out No l onger eligible based on patient's age to complete this topic Meningococcal Vaccine Aged Out No swetha alvin eligible based on patient's age to complete this topic RSV Immunizations Under 20 Months Aged Out No longer eligible based on patient's age to complete this topic
--- OUTSIDE RECORDS SUMMARY | 2025-04-12 15:56 | XMS_ITS | Clinical Summary ---
Author Organization [facility] Leslie Rodriguez nsion Address [address] [place] [address] [place] [address] Care Team Providers Care Coordinator Of Rehabilitation Services Name Role Phone Rahel Robles NP Primary Care Provider [phone] Allergies No known active allergies Medications allopurinol [...] Department Care Team Description 01/18/2025 Orders Only 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 Gender Identity Not on file Sexual Orientation Not on file Obstetrics History Last Filed Vital Signs Vital Sign Reading Time Taken Comments Blood Pressure 139/87 07/12/2024 11:16 AM BEEF GRADER Pulse 83 07/12/2024 11:16 AM BEEF GRADER Temperature 36.6 C (97.9 F) 10/30/2022 9:13 AM CDT Respiratory Rate 13 10/30/2022 10:4 5 AM CDT Oxygen Saturation 95% 07/12/2024 11: 16 AM BEEF GRADER Inhaled Oxygen Concentration - - Weight 109.1 kg (240 lb 9.6 oz) 024 11:16 AM BEEF GRADER Height 177.8 cm (5' 10) 07/12/2024 11: 16 AM BEEF GRADER Body Mass Index 34.52 07/12/2024 11:16 AM BEEF GRADER Plan of Treatment Health Maintenance Due Date [...] Tdap) 05/05/202810/2017 Medical Devices Implanted Type Area Die Repair Device Identifier Shelf Expiration Date Model / Serial / Lot Icd-07/29/2015 Implanted:07/03 by Matt Linn MD PhD (Quantity not on file) ICD Chest Medtronic Cardiac Rhythm Mgmt [id number] VIVA QUAD XT INTERNAL WHOLESALER-D / / Description:This CIED system is NOT [...] exam per CIED protocol. Medtronic Inc Cardiac [place] Hf 2 Chamber Df4 Inline Cnctr Is4 [id number] - [id number] - [id number] Implanted:Qty: 1 on 10/30/2022 by Matt Linn MD PhD at [facility] ICD Left: Chest Wall Medtronic Inc 01/28/2024 [id number] / [id number] / Lead (Lv)- 5 Implanted:07/03 by Matt Linn MD PhD (Quantity not on file) Lead Heart Medtronic Cardiac Rhythm Mgmt 4598 ATTAIN PERFORMA S / [id number] / Description:This CIED system is NOT MRI [...] Cardiac Rhythm Mgmt 5076 CAPSUREFIX NOVUS / [id number] / Description:This CIED system is NOT MRI [...] Mgmt 6935M SPRINT QUATTRO SECURE S / [id number] / Description:This CIED system is NOT MRI [...] is programmed Adaptive, currently 3.5/0.4. Presenting Rhythm (UT) Atrial Sensing-Ventricular Pacing (-ALL ROUND BUTCHER) --- /ALL ROUND BUTCHER 90 bpm. Arrhythmic events (AE) No new [...] is programmed Adaptive, currently 3.5/0.4. Presenting Rhythm (UT) Atrial Sensing-Ventricular Pacing (-ALL ROUND BUTCHER) --- /ALL ROUND BUTCHER 90 bpm. Arrhythmic events (AE) No new arrhythmic events in monitoring period --- Since 11/15/24: No AHRor VHR episodes. Transmission Information (TI) Device Summary Report Follow Up (FU) Patient's primary treating physician will be apprised of findings Matt Linn MD PhD CV CARDIAC SERVICES PROCEDURES Final Result from Last 3 Months Insurance [employer] [place] [employer] Care Teams Coordinator Of Rehabilitation Services Relationship Specialty Start Date End Date Rahel Robles NP [address] [place], [place] [id number] PCP - General Nurse Practitioner 07/03/24
[2025-04-12 16:05] LABS: Alanine Aminotransferase 25 U/L (6-50); Albumin Level 3.6 g/dL (3.5-5.1); Alkaline Phosphatase 72 U/L (38-126); Anion Gap 8 mmol/L (4-12); Aspartate Amino Transferase 32 U/L (17-59); Bilirubin,Total 0.9 mg/dL (0.2-1.3); Blood Urea Nitrogen 30 mg/dL (9-20); Calcium 8.3 mg/dL (8.4-10.2); Carbon Dioxide 22 mmol/L (22-30); Chloride 104 mmol/L (98-107); Cholesterol 137 mg/dL (0-200); Estimated Glomerular Filt Rate 31; Glucose 102 mg/dL (65-110); HDL Direct 35 mg/dL; Potassium 4.3 mmol/L (3.4-5.0); Sodium 134 mmol/L (137-145); Total Protein 6.9 g/dL (6.3-8.2); Triglycerides 208 mg/dL (<150)
[2025-04-12 16:07] LABS: Iron 78 ug/dL (49-181)
[2025-04-12 16:20] LABS: Percent Iron Saturation 26 % (20-50)
[2025-04-12 16:41] LABS: Prostate Specific Antigen 0.9 ng/mL (< OR = 4.0); Thyroid Stimulating Hormone 1.860 uIU/mL (0.465-4.680)
[2025-04-12 16:48] LABS: Ferritin 49.70 ng/mL (11.1-264)
[2025-04-12 17:57] LABS: Hemoglobin A1C 6.2 % (<5.7)
== END 2025-04-12 14:10 | disposition home or self-care (01) ==
PROVIDERS: PCP Nurse Practitioner Family; Visit Provider Nurse Practitioner Family
DX: F41.9 Anxiety disorder, unspecified (principal); I50.22 Chronic systolic (congestive) heart failure; E78.5 Hyperlipidemia, unspecified; E11.29 Type 2 diabetes mellitus with other diabetic kidney complication; E11.22 Type 2 diabetes mellitus with diabetic chronic kidney disease; E66.811 Obesity, class 1; E66.09 Other obesity due to excess calories; Z68.30 Body mass index [BMI] 30.0-30.9, adult; Z71.3 Dietary counseling and surveillance; Z12.5 Encounter for screening for malignant neoplasm of prostate; M17.0 Bilateral primary osteoarthritis of knee; I12.9 Hypertensive chronic kidney disease with stage 1 through stage 4 chronic kidney disease, or unspecified chronic kidney disease; N18.30 Chronic kidney disease, stage 3 unspecified; N28.1 Cyst of kidney, acquired
CPT/HCPCS: 36415; 76770; 80053; 80061; 82728; 83036; 83540; 83550; 84153; 84443; 85025; G0103

== ENCOUNTER 2025-05-23 12:37 | Outpatient (CLI) | payer BC, SELFPAY ==
--- NOTE | ~2025-05-23 | XR_ITS ---
XR foot LT min 3V 05/23/2025 12:58 Indication: Left foot pain Procedure: 4 views left foot Comparison: No prior studies for comparison. Findings: No fracture, subluxation or dislocation. Lisfranc joint intact. No significant soft tissue abnormality. No foreign bodies. There are degenerative changes of the tarsal metatarsal joints. Lisfranc joint intact. Impression: 1: No acute bone or joint abnormality. Reviewed, dictated and finalized at location O. Impression: 1: No acute bone or joint abnormality.
== END 2025-05-23 12:38 | disposition home or self-care (01) ==
PROVIDERS: PCP Nurse Practitioner Family; Visit Provider Nurse Practitioner Family
DX: S99.922A Unspecified injury of left foot, initial encounter (principal); X58.XXXA Exposure to other specified factors, initial encounter
CPT/HCPCS: 73630